=== PATIENT | male | born 1945 | race Caucasian/White ===

== ENCOUNTER 2017-01-24 08:37 | Emergency (ER) | payer MEDICARE, OTHER ==
--- NOTE | 2017-01-24 08:41 | ED Physician Documentation ---
PD HPI ABD PAIN - Stated complaint Stated Complaint: ABD/BACK PX - History obtained from History obtained from: Patient - History of Present Illness Timing - onset: Last night Timing - details: Gradual onset (was having flank pain with movement and some tender to touch during yoga retreat last week, thought it muscular and was treating with Aleve twice daily and massage. Presumed muscle strain. Had left flank to left abd pain start overnight, more severe, unrelated to movement.) Quality: Aching, Sharp, Pain Location: LUQ, LLQ Radiation: Left flank Improved by: No: Eating, Laying still, Position Worsened by: Moving. No: Eating, Position, Palpation Associated symptoms: Nausea. No: Fever, Vomiting, Diarrhea, Constipation, Dysuria, Hematuria Similar symptoms before: Has not had sx before Recently seen: Not recently seen Review of Systems Constitutional: denies: Fever, Chills, Myalgias Nose: denies: Rhinorrhea / runny nose, Congestion Throat: denies: Sore throat Cardiac: denies: Chest pain / pressure Respiratory: denies: Dyspnea, Cough GI: reports: Abdominal Pain (left sided), Nausea. denies: Vomiting, Constipation, Diarrhea : denies: Dysuria, Frequency Skin: denies: Rash, Lesions Neurologic: denies: Generalized weakness, Focal weakness, Numbness, Near syncope PD PAST MEDICAL HISTORY - Past Medical History Cardiovascular: None Respiratory: None Neuro: None Endocrine/Autoimmune: None GI: None - Present Medications Home Medications: Ambulatory Orders Medication Instructions Recorded Confirmed Dexamethasone [Decadron] 4 mg PO DAILY #5 tablet 01/24/17 Levothyroxine [Synthroid] 100 mcg PO DAILY 01/24/17 01/24/17 Lisinopril 01/24/17 Lisinopril/Hydrochlorothiazide 1 tab PO DAILY 01/24/17 01/24/17 [Lisinopril-Hctz 10-12.5 mg Tab] Ondansetron HCl [Zofran] 4 mg PO Q6H PRN #20 tablet 01/24/17 Oxycodone HCl/Acetaminophen 1 each PO Q6H PRN #20 tablet 01/24/17 [Percocet 5-325 mg Tablet] Tamsulosin [Flomax] 0.4 mg PO DAILY #5 capsule 01/24/17 - Allergies Allergies/Adverse Reactions: Allergies Allergy/AdvReac Type Severity Reaction Status Date / Time erythromycin base Allergy Unknown Verified 01/24/17 08:44 Sulfa (Sulfonamide Allergy Unknown Verified 01/24/17 08:44 Antibiotics) - Family History Family history: reports: Non contributory PD ED PE NORMAL - Vitals Vital signs reviewed: Yes - General General: Alert and oriented X 3, No acute distress, Well developed/nourished - Neck Neck: Supple, no meningeal sign, No adenopathy - Cardiac Cardiac: RRR, No murmur - Respiratory Respiratory: Clear bilaterally - Abdomen Abdomen: Normal bowel sounds, Soft, Non distended, No organomegaly, Other (some tenderness left sided without guarding nor percussion tenderness. No masses. ) - Male Male : Deferred - Rectal Rectal: Deferred - Back Back: Other (some left CVA tenderness to percussion. Some muscular tenderness left parathoracic muscles. ) - Derm Derm: Normal color, Warm and dry, No rash - Extremities Extremities: No tenderness to palpate, Normal ROM s pain - Neuro Neuro: Alert and oriented X 3, No motor deficit, Normal speech Results - Vitals Vitals: Vital Signs - 24 hr 01/24/17 01/24/17 08:41 10:41 Temperature 36.6 C Heart Rate 111 H 69 Respiratory 16 18 Rate Blood Pressure 152/82 H 124/78 O2 Saturation 98 95 Oxygen O2 Source Room air - Labs Labs: Laboratory Tests 01/24/17 01/24/17 01/24/17 09:11 09:39 09:39 WBC 10.5 RBC 4.84 Hgb 14.9 Hct 44.0 MCV 90.9 MCH 30.8 MCHC 33.9 RDW 13.8 Plt Count 238 MPV 7.7 Neut # 7.7 H Lymph # 1.4 L [place] # 1.3 H Eos # 0.1 Baso # 0.0 Absolute Nucleated RBC 0.00 Nucleated RBCs 0.0 Sodium 135 Potassium 4.0 Chloride 103 Carbon Dioxide 25 Anion Gap 7.0 BUN 31 H Creatinine 2.0 H Estimated GFR (MDRD) 33 L Glucose 127 H Calcium 10.2 Total Bilirubin 0.9 AST 21 ALT 28 Alkaline Phosphatase 60 Total Protein 7.1 Albumin 3.6 Globulin 3.5 Albumin/Globulin Ratio 1.0 Lipase 26 Urine Color YELLOW Urine Clarity CLEAR Urine pH 5.5 Ur Specific [place] 1.010 Urine Protein NEGATIVE Urine Glucose (UA) NEGATIVE Urine Ketones NEGATIVE Urine Occult Blood TRACE-LYSE Urine Nitrite NEGATIVE Urine Bilirubin NEGATIVE Urine Urobilinogen 0.2 (NORMAL) Ur Leukocyte Esterase NEGATIVE Ur Microscopic Review NOT INDICATED Urine Culture Comments NOT INDICATED - Rads (name of study) KUB CT Radiology: Prelim report reviewed (proximal urteral stone 7 mm with 2nd stone proximal to it. Mild hydronephrosis. ), EMP read contemporaneously PD MEDICAL DECISION MAKING - ED course Complexity details: considered differential (Not in that much pain; declines IV. Given PO meds. ), d/w patient Departure - Departure Disposition: Home, Self Care Clinical Impression: Left lateral abdominal pain, Ureterolithiasis, Elevated serum creatinine Condition: Stable Record reviewed to determine appropriate education?: Yes Instructions: ED Stone Renal W Colic Follow-Up: Aly Seals MD [Primary Care Provider] - [facility] [Provider Group] Prescriptions: Dexamethasone [Decadron] 4 mg PO DAILY #5 tablet Tamsulosin [Flomax] 0.4 mg PO DAILY #5 capsule Oxycodone HCl/Acetaminophen [Percocet 5-325 mg Tablet] 1 each PO Q6H PRN #20 tablet PRN Reason: Pain Ondansetron HCl [Zofran] 4 mg PO Q6H PRN #20 tablet PRN Reason: Nausea / Vomiting Comments: Drink adequate fluids. Tylenol for mild pain, Percocet for worse pain. Take daily stool softener. Call urology tomorrow for an appointment in the next few days. Do not take any ibuprofen or naproxen as your kidney function is slightly elevated. That could be an effect of the NSAIDs he had been using or may relate to the stone. Instead use Decadron daily for inflammation. Tamsulosin daily for the next 5 days to reduce ureter spasms. Return if worse pain. Discharge Date/Time: 01/24/17 10:52
[2017-01-24] MEDS ORDERED: HYDROcod/ACETAM 5/325 MG TABLET PO STA (09:13)
[2017-01-24] MEDS ORDERED: ONDANSETRON ODT 4 MG TABLET TL STA (09:13)
[2017-01-24 09:18] LABS: BILIRUBIN,URINE NEGATIVE (NEGATIVE); PH,URINE 5.5 PH (5.0-7.5)
[2017-01-24] MEDS ORDERED: HYDROcod/ACETAM 5/325 MG TABLET ONE (09:19)
[2017-01-24] MEDS ORDERED: ONDANSETRON ODT 4 MG TABLET ONE (09:19)
[2017-01-24 09:20] LABS: UA CHARGE (STRIP ONLY) YES; UR CULTURE IF IND NOT INDICATED
[2017-01-24 09:44] LABS: BASOPHILS % (AUTO) 0.3 %; EOSINOPHILS # (AUTO) 0.1 10^3/uL (0.0-0.7); HGB - HEMOGLOBIN 14.9 g/dL (14.0-18.0); LYMPHOCYTES # (AUTO) 1.4 10^3/uL (1.5-3.5); MEAN CORPUSCULAR HEMOGLOBIN 30.8 pg (27.0-31.0); MEAN CORPUSCULAR HGB CONC 33.9 g/dL (32.0-36.0); MEAN CORPUSCULAR VOLUME 90.9 fL (80.0-94.0); MEAN PLATELET VOLUME 7.7 fL (7.4-11.4); MONOCYTES # (AUTO) 1.3 10^3/uL (0.0-1.0); MONOCYTES % (AUTO) 12.5 %; NEUTROPHILS # (AUTO) 7.7 10^3/uL (1.5-6.6); NEUTROPHILS % (AUTO) 73.2 %; RED BLOOD COUNT 4.84 10^6/uL (4.70-6.10); RED CELL DISTRIBUTION WIDTH 13.8 % (12.0-15.0); UNCORRECTED WHITE BLOOD COUNT 10.5 x10^3/uL; WHITE BLOOD COUNT 10.5 x10^3/uL (4.8-10.8)
--- NOTE | 2017-01-24 09:52 | CT Preliminary Report ---
Exam: CT KUB IMPRESSION: 1. Obstructing proximal left ureteral 7 x 5 mm calculus with 2 other smaller although more proximal c alculi within the slightly more proximal left ureter, the largest of which measures 3 x 3 mm. 2. Mild to moderate left hydronephrosis and left perinephric edema. 3. Nonobstructing left renal calculi. 4. Normal appendix. [facility] SITE ID: [id number]
[2017-01-24 09:55] LABS: BILIRUBIN,TOTAL 0.9 mg/dL (0.2-1.0); CALCIUM 10.2 mg/dL (8.5-10.3); TOTAL PROTEIN 7.1 g/dL (6.7-8.2)
[2017-01-24 10:41] VITALS: BP 124/78
--- NOTE | 2017-01-24 11:15 | CT Report ---
EXAM: CT ABDOMEN AND PELVIS (CT KUB) EXAM DATE: 01/24/2017 09:30 AM. CLINICAL HISTORY: Left flank and abdominal pain for a few days. COMPARISONS: None. TECHNIQUE: Routine axial helical CT imaging was performed through the abdomen and pelvis without IV c ontrast. Reconstructions: Coronal and sagittal. In accordance with CT protocol optimization, one or more of the following dose reduction techniques w ere utilized for this exam: automated exposure control, adjustment of mA and/or KV based on patient s ize, or use of iterative reconstructive technique. FINDINGS: Lung Bases: Basilar scar/atelectasis. Included portions of the heart are unremarkable. Right Kidney/Ureter: No nephrolithiasis. No hydronephrosis. No ureteral dilatation or ureteral calcul i. Mild right perinephric stranding. Left Kidney/Ureter: Left perinephric edema and left fsqc-[id number] hydronephrosis extending to a pr oximal left ureter where there is an obstructing calculus just distal to the left upj, which measures 7 x 5 mm. Just proximal are two other calculi, the larger of which measures 3 x 3 mm. There are at l east two nonobstructing left renal calculi in the mid and lower pole, the largest measuring 2.5 mm. T he mid distal left ureter is not dilated. Other Solid Organs: Included portions of the liver spleen, adrenals and pancreas are unremarkable. Gallbladder/Bile Ducts: Unremarkable. Peritoneal Cavity: Stomach is mildly distended and unremarkable. No bowel obstruction. Appendix is no rmal. Icldn-sx-btqpbnib volume of stool is seen in the colon. No diverticulitis. No enlarged retrope ritoneal or mesenteric lymph nodes. Pelvic Organs: Urinary bladder is unremarkable. No bladder calculi. Prostate calcifications are seen. No pelvic adenopathy. No pelvic free fluid. Vasculature: Atherosclerotic calcifications are seen. No aneurysm. Other: Degenerative changes of the lower thoracic and lumbar spine. Lumbar facet arthropathy. Degener ative changes of both hip joints. IMPRESSION: 1. Obstructing proximal left ureteral 7 x 5 mm calculus with two other smaller although more proximal calculi within the slightly more proximal left ureter, the largest of which measures 3 x 3 mm. 2. Mild to moderate left hydronephrosis and left perinephric edema. 3. Nonobstructing left renal calculi. 4. Normal appendix. [facility] Referring Provider Line: [phone] SITE ID: [id number]
== END 2017-01-24 10:52 | disposition home or self-care (01) ==
LOC: ED 08:37
DX: N13.2 Hydronephrosis with renal and ureteral calculous obstruction (principal); R94.4 Abnormal results of kidney function studies
CPT/HCPCS: 36415; 74176; 80053; 81003; 83690; 85025; 99283; 99284; A9270; Q0162; 81001; 87086

== ENCOUNTER 2017-02-19 16:22 | Outpatient (CLI) | payer MEDICARE, OTHER ==
--- NOTE | 2017-02-19 22:14 | MRI Report ---
EXAM: RIGHT SHOULDER MRI WITHOUT CONTRAST EXAM DATE: 02/19/2017 04:42 PM. CLINICAL HISTORY: Right shoulder injury and sprain. Previous dislocation injury as a teenager. Previo us labral surgery in 1996. Right shoulder subluxing and partially dislocating. Right shoulder pain. R educed range of motion. COMPARISON: None. TECHNIQUE: Multiplanar, multisequence T1-weighted and fluid-sensitive sequences of the shoulder witho ut contrast. Other: None. FINDINGS: Acromioclavicular Region: The acromion is type I. There is a prominent, approximately 8 x 4 x 4 mm e nthesophyte arising from the inferolateral margin of the acromion. There is abfx-dg-epfqyuxn acromioc lavicular joint osteoarthritis. The coracoacromial ligament is not well visualized. The coracoclavicu lar ligament is intact. No subacromial/subdeltoid bursal fluid. Glenohumeral Region: There is slight posterior superior subluxation of the humeral head relative to t he glenoid. No effusion or loose bodies. Grade 3-4 chondromalacia at the posterior aspect of the ricky oid and diffuse grade 3-4 chondromalacia at the humeral head. The glenohumeral ligaments and joint ca psule are unremarkable. Bone Marrow: Small subcortical cysts and osteophytes at the posterior aspect of the glenoid. Small gonzalez bcortical cysts at the posterior superior aspect of the humeral head. No acute fracture. No Hill-Sach s or bony Bankart lesions. Labrum: The labrum is unremarkable on this nonarthrographic study. Musculature/Rotator Cuff: Mild supraspinatus tendinosis. The infraspinatus, teres minor, and subscapu faby tendons are unremarkable. No discrete rotator cuff tear. No edema or fatty atrophy. Biceps Tendon: The long head of the biceps tendon and biceps josé miguel are intact. Other: The subcutaneous tissues are unremarkable. IMPRESSION: 1. Prominent enthesophyte arising from the inferolateral margin of the acromion. 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 2. The coracoacromial ligament is not well visualized, and may be torn or removed. 3. Slight posterior superior subluxation of the humeral head relative to the glenoid. Grade 3-4 chond romalacia at the posterior aspect of the glenoid and throughout the humeral head. 4. Mild supraspinatus tendinosis. No rotator cuff tear. [facility] MUSCULOSKELETAL RADIOLOGY SECTION Referring Provider Line: [phone] SITE ID: [id number]
== END 2017-02-19 16:23 | disposition home or self-care (01) ==
LOC: DI 16:22
PROVIDERS: ATTEND Orthopaedic Surgery
DX: S43.021A Posterior subluxation of right humerus, initial encounter (principal); M19.011 Primary osteoarthritis, right shoulder; M75.81 Other shoulder lesions, right shoulder; M94.211 Chondromalacia, right shoulder

== ENCOUNTER 2017-03-26 13:54 | Outpatient (CLI) | payer MEDICARE, OTHER | END 2017-03-26 13:55 | disposition home or self-care (01) | LOC: DI 13:54 | PROVIDERS: ATTEND Internal Medicine Cardiovascular Disease | DX: I49.3 Ventricular premature depolarization (principal); I10 Essential (primary) hypertension; I34.0 Nonrheumatic mitral (valve) insufficiency | CPT/HCPCS: 36415; 83735; 93306 ==

== ENCOUNTER 2017-04-23 07:29 | Outpatient (CLI) | payer MEDICARE, OTHER ==
[2017-04-23 12:13] LABS: BUN - BLOOD UREA NITROGEN 17 mg/dL (6-20); CALCIUM 9.2 mg/dL (8.5-10.3); CARBON DIOXIDE - CO2 26 mmol/L (21-32); CHLORIDE 103 mmol/L (101-111); CHOL/HDL RATIO 3.8 (<5.0); CHOLESTEROL 204 mg/dL; CREATININE 1.1 mg/dL (0.6-1.2); GFR - MDRD 66 (>89); GLUCOSE 95 mg/dL (70-100); HDL CHOLESTEROL 54 mg/dL; LDL/HDL RATIO 2.6 (<3.6); POTASSIUM 4.2 mmol/L (3.5-5.0); SODIUM 137 mmol/L (135-145); TRIGLYCERIDES 43 mg/dL; VLDL CHOLESTEROL 9 mg/dL
== END 2017-04-23 07:30 | disposition home or self-care (01) ==
LOC: LAB.F 07:29
PROVIDERS: ATTEND Internal Medicine
DX: Z00.00 Encounter for general adult medical examination without abnormal findings (principal); I10 Essential (primary) hypertension; N17.9 Acute kidney failure, unspecified; J30.9 Allergic rhinitis, unspecified; L20.9 Atopic dermatitis, unspecified; M54.2 Cervicalgia; L30.9 Dermatitis, unspecified; G47.00 Insomnia, unspecified; H35.30 Unspecified macular degeneration; N20.0 Calculus of kidney; E66.3 Overweight; M25.561 Pain in right knee; M25.511 Pain in right shoulder; E03.9 Hypothyroidism, unspecified
CPT/HCPCS: 36415; 80048; 80061; 84443

== ENCOUNTER 2017-06-10 09:38 | Outpatient (CLI) | payer MEDICARE, OTHER ==
--- NOTE | 2017-06-10 18:51 | CARDIAC PROCEDURE NOTE ---
DATE OF SERVICE: 06/10/ PROCEDURE: MPS Jerrod treadmill ORDERING [employer] SALES MANAGER: Dr. Lane PCP: Dr. Seals. SYMPTOMS: PVCs. RISK FACTORS: Age, hypertension and hyperlipidemia. PRIOR PROCEDURES: Previous ETT MEDICATIONS: Metoprolol held x24 hours. CLINICAL HISTORY: This is a 71-year-old male without known coronary artery disease. PROCEDURE AND FINDINGS: VITAL SIGNS: Blood pressure 122/72, heart rate 91, height 71 inches, weight 188 pounds. The patient's ID and date verified. Consent signed, pharmaceutical check done. The patient performed treadmill exercise using a Jerrod protocol, completing 7 minutes, 40 seconds, and completing an estimated workload of 10.1 metabolic equivalents. Cardiolite was injected at target heart rate and the patient exercised at least 60 seconds longer. Maximal blood pressure was 182/70 with a heart rate of 157 or 104% MPHR for age. The blood pressure response to exercise was within normal limits. The patient stopped due to tiring. The resting ECG demonstrated normal sinus rhythm with occasional unifocal PVCs. Maximal ST segment depression was less than 0.5 mm and upsloping. There were occasional random PVCs, PVC bigeminy and trigeminy, and one couplet. FINAL IMPRESSION: 1. Negative stress electrocardiogram for ischemia by electrocardiographic criteria. 2. Negative stress test clinically for angina. 3. PVC ectopy. 4. Await findings of myocardial perfusion scan. JOB #: [id number] EXT JOB #:[id number] MTDD
[2017-06-10 19:19] VITALS: BP 122/72
--- NOTE | 2017-06-11 09:16 | Nuclear Medicine Report ---
EXAM: SINGLE-ISOTOPE EXERCISE STRESS TEST. SINGLE-ISOTOPE AND ONE-DAY REST/STRESS MYOCARDIAL PERFUSION SCAN S WITH TOMOGRAPHIC IMAGING, QUANTITATIVE ANALYSIS, WALL MOTION ANALYSIS AND CALCULATION OF EJECTION F RACTION. EXAM DATE: 06/10/2017 05:03 PM. CLINICAL HISTORY: PVCS. COMPARISON: None. TECHNIQUE: A rest myocardial perfusion scan was done with tomography after the intravenous administration of 10. 1 mCi Tc-99m sestamibi. After an appropriate delay, a treadmill exercise stress was performed according to department protoco l. The patient exercised for 7 minutes and 40 seconds. The maximum heart rate was 157 bpm, which was 104% of the maximum predicted heart rate of 151 bpm. At approximately peak heart rate, 40.6 mCi of Tc -99m sestamibi was injected for stress myocardial perfusion scan. Motion correction was applied when appropriate. Gated tomographic images were obtained for wall motion analysis and computation of left ventricular e jection fraction. FINDINGS: Perfusion images: Left ventricular chamber size is normal at rest and unchanged at stress. There is mild fixed inferior wall perfusion deficit likely diaphragmatic attenuation artifact. No convincing fixed perfusion deficits. No convincing reversible perfusion deficits. Gated images: No focal wall motion abnormality. The left ventricular ejection fraction is estimated at 66% (normal > 50%). IMPRESSION: 1. No convincing reversible perfusion deficits to indicate stress-induced ischemia. 2. No convincing fixed perfusion deficits. 3. Left ventricular ejection fraction of 66% (normal > 50%). 4. No focal wall motion abnormalities. [facility] Referring Provider Line: [phone] SITE ID: [id number]
== END 2017-06-10 09:39 | disposition home or self-care (01) ==
LOC: DI 09:38
PROVIDERS: ATTEND Internal Medicine Cardiovascular Disease
DX: I49.3 Ventricular premature depolarization (principal); R53.83 Other fatigue; I10 Essential (primary) hypertension; I25.10 Atherosclerotic heart disease of native coronary artery without angina pectoris
CPT/HCPCS: 78452; 93017; A9500

== ENCOUNTER 2018-03-31 07:48 | Outpatient (CLI) | payer MEDICARE, OTHER ==
[2018-03-31 10:22] LABS: BUN - BLOOD UREA NITROGEN 25 mg/dL (6-20); CALCIUM 9.5 mg/dL (8.5-10.3); CARBON DIOXIDE - CO2 28 mmol/L (21-32); CHLORIDE 104 mmol/L (101-111); GFR - MDRD 74 (>89); GLUCOSE 87 mg/dL (70-100); SODIUM 139 mmol/L (135-145)
[2018-04-01 13:57] LABS: HEPATITIS C ANTIBODY NON-REACTIVE (NON-REACTIVE)
== END 2018-03-31 07:49 | disposition home or self-care (01) ==
LOC: LAB.F 07:48
PROVIDERS: ATTEND Internal Medicine
DX: I10 Essential (primary) hypertension (principal); E78.5 Hyperlipidemia, unspecified; E03.9 Hypothyroidism, unspecified; L30.9 Dermatitis, unspecified; L71.9 Rosacea, unspecified; M25.511 Pain in right shoulder; Z11.59 Encounter for screening for other viral diseases
CPT/HCPCS: 36415; 80048; 84443; 86803

== ENCOUNTER 2018-07-02 17:09 | Emergency (ER) | payer MEDICARE, OTHER ==
[2018-07-02 17:22] VITALS: BP 147/86
[2018-07-02] MEDS ORDERED: AMOX/CLAV 875 MG/125 MG TABLET PO STA (17:33)
[2018-07-02] MEDS ORDERED: BENZONATATE 100 MG CAPSULE PO STA (17:33)
[2018-07-02] MEDS ORDERED: guaiFENesin/CODEINE 5 ML UDC PO STA (17:33)
--- NOTE | 2018-07-02 17:35 | ED Physician Documentation ---
History of Present Illness - Stated complaint Stated Complaint: CONGESTED/COUGH - Chief complaint Chief Complaint: Heent - History obtained from History obtained from: Patient - History of Present Illness Timing: Other (Sick for 3 weeks with cough and sinus congestion with green drainage and low-grade fevers.) Review of Systems Ten Systems: 10 systems reviewed and negative Constitutional: reports: Fever, Fatigue. denies: Chills Nose: reports: Rhinorrhea / runny nose, Congestion, Sinus pressure / pain Throat: denies: Sore throat Respiratory: reports: Cough. denies: Dyspnea PD PAST MEDICAL HISTORY - Past Medical History Cardiovascular: None, Hypertension, High cholesterol Respiratory: None Endocrine/Autoimmune: None GI: None - Past Surgical History Past Surgical History: Yes - Present Medications Home Medications: Ambulatory Orders Medication Instructions Recorded Confirmed Levothyroxine [Synthroid] 100 mcg PO DAILY 01/24/17 01/24/17 Lisinopril 1 tab PO DAILY 01/24/17 Amox/Clav 875/125 [Augmentin] 1 each PO Q12H #20 tablet 07/02/18 Benzonatate [Tessalon Perle] 100 - 200 mg PO TID PRN #30 capsule 07/02/18 guaiFENesin/CODEINE [Robitussin AC] 5 - 10 ml PO Q6H PRN #120 ml 07/02/18 - Allergies Allergies/Adverse Reactions: Allergies Allergy/AdvReac Type Severity Reaction Status Date / Time erythromycin base Allergy Unknown Verified 07/02/18 17:22 Sulfa (Sulfonamide Allergy Unknown Verified 07/02/18 17:22 Antibiotics) - Social History Does the pt smoke?: No Smoking Status: Never smoker Does the pt drink ETOH?: No Does the pt have substance abuse?: No PD ED PE NORMAL - Vitals Vital signs reviewed: Yes - General General: Alert and oriented X 3, No acute distress - HEENT HEENT: Other (Retracted TMs bilaterally with mild right maxillary sinus tenderness. Oropharynx normal.) - Neck Neck: Supple, no meningeal sign, No bony TTP - Cardiac Cardiac: RRR, No murmur - Respiratory Respiratory: No respiratory distress, Clear bilaterally - Abdomen Abdomen: Non tender - Neuro Neuro: Alert and oriented X 3, Normal speech Results - Vitals Vitals: Vital Signs - 24 hr 07/02/18 17:19 Temperature 36.6 C Heart Rate 88 Respiratory 16 Rate Blood Pressure 147/86 H O2 Saturation 98 Oxygen O2 Source Room air PD MEDICAL DECISION MAKING - ED course ED course: Given the time course he does fit IDSA criteria for antibiotic treatment for sinusitis. Departure - Departure Disposition: 01 Home, Self Care Clinical Impression: Sinusitis Qualifiers: Sinusitis location: maxillary Chronicity: acute Recurrence: not specified as recurrent Qualified Code(s): J01.00 - Acute maxillary sinusitis, unspecified Condition: Good Record reviewed to determine appropriate education?: Yes Instructions: ED Sinusitis Abx Tx Prescriptions: Amox/Clav 875/125 [Augmentin] 1 each PO Q12H #20 tablet Benzonatate [Tessalon Perle] 100 - 200 mg PO TID PRN #30 capsule PRN Reason: Cough guaiFENesin/CODEINE [Robitussin AC] 5 - 10 ml PO Q6H PRN #120 ml PRN Reason: Cough Comments: Call your doctor to arrange a follow-up appointment, make the next available appointment. In the interim, return anytime if worse or if new symptoms develop. Your blood pressure was elevated today on check into the emergency department. This does not mean that you have hypertension, it is a common phenomenon to come to the emergency department and have elevated blood pressure. I recommend that you see your primary care physician within the week to have it rechecked when you are feeling better.
== END 2018-07-02 17:43 | disposition home or self-care (01) ==
LOC: ED 17:09
DX: J01.00 Acute maxillary sinusitis, unspecified (principal); I10 Essential (primary) hypertension; E78.00 Pure hypercholesterolemia, unspecified
CPT/HCPCS: 99283; A9270

== ENCOUNTER 2019-05-01 08:10 | Outpatient (CLI) | payer MEDICARE, OTHER ==
[2019-05-01 10:28] LABS: BUN - BLOOD UREA NITROGEN 16 mg/dL (6-20); CALCIUM 9.6 mg/dL (8.5-10.3); CARBON DIOXIDE - CO2 27 mmol/L (21-32); CHLORIDE 102 mmol/L (101-111); CHOL/HDL RATIO 3.4 (<5.0); CHOLESTEROL 197 mg/dL; CREATININE 1.1 mg/dL (0.6-1.2); GFR - MDRD 66 (>89); GLUCOSE 99 mg/dL (70-100); HDL CHOLESTEROL 58 mg/dL; LDL CHOLESTEROL,CALCULATED 128 mg/dL; LDL/HDL RATIO 2.2 (<3.6); SODIUM 137 mmol/L (135-145); VLDL CHOLESTEROL 11 mg/dL
== END 2019-05-01 08:11 | disposition home or self-care (01) ==
LOC: LAB.S 08:10
PROVIDERS: ATTEND Internal Medicine
DX: Z00.00 Encounter for general adult medical examination without abnormal findings (principal); J30.9 Allergic rhinitis, unspecified; L30.9 Dermatitis, unspecified; K21.9 Gastro-esophageal reflux disease without esophagitis; E78.5 Hyperlipidemia, unspecified; G47.00 Insomnia, unspecified; L71.9 Rosacea, unspecified; M54.6 Pain in thoracic spine; E03.9 Hypothyroidism, unspecified; I10 Essential (primary) hypertension
CPT/HCPCS: 36415; 80048; 80061; 83721; 84443

== ENCOUNTER 2020-03-28 08:23 | Outpatient (CLI) | payer MEDICARE, OTHER ==
[2020-03-28 16:03] LABS: BUN - BLOOD UREA NITROGEN 20 mg/dL (6-20); CALCIUM 9.5 mg/dL (8.5-10.3); CARBON DIOXIDE - CO2 26 mmol/L (21-32); CHLORIDE 102 mmol/L (101-111); CHOL/HDL RATIO 3.4 (<5.0); CHOLESTEROL 191 mg/dL; CREATININE 1.1 mg/dL (0.6-1.2); GLUCOSE 103 mg/dL (70-100); HDL CHOLESTEROL 56 mg/dL; LDL CHOLESTEROL,CALCULATED 118 mg/dL; LDL/HDL RATIO 2.1 (<3.6); SODIUM 136 mmol/L (135-145); VLDL CHOLESTEROL 17 mg/dL
== END 2020-03-28 08:24 | disposition home or self-care (01) ==
LOC: LAB.S 08:23
PROVIDERS: ATTEND Internal Medicine
DX: Z00.00 Encounter for general adult medical examination without abnormal findings (principal); I10 Essential (primary) hypertension; E78.5 Hyperlipidemia, unspecified; E03.9 Hypothyroidism, unspecified; J30.9 Allergic rhinitis, unspecified; L30.9 Dermatitis, unspecified; K21.9 Gastro-esophageal reflux disease without esophagitis; G47.00 Insomnia, unspecified; L71.9 Rosacea, unspecified; M54.6 Pain in thoracic spine
CPT/HCPCS: 36415; 80048; 80061; 83721; 84443

== ENCOUNTER 2020-04-08 14:45 | Outpatient (CLI) | payer MEDICARE, OTHER ==
[2020-04-08 20:07] LABS: BASOPHILS % (AUTO) 0.3 %; EOSINOPHILS # (AUTO) 0.1 10^3/uL (0.0-0.7); EOSINOPHILS % (AUTO) 0.9 %; HGB - HEMOGLOBIN 15.4 g/dL (14.0-18.0); LYMPHOCYTES # (AUTO) 1.9 10^3/uL (1.5-3.5); LYMPHOCYTES % (AUTO) 21.4 %; MEAN CORPUSCULAR HEMOGLOBIN 30.4 pg (27.0-31.0); MEAN CORPUSCULAR HGB CONC 31.8 g/dL (32.0-36.0); MEAN CORPUSCULAR VOLUME 95.7 fL (80.0-94.0); MEAN PLATELET VOLUME 10.4 fL (7.4-11.4); MONOCYTES # (AUTO) 0.8 10^3/uL (0.0-1.0); MONOCYTES % (AUTO) 8.4 %; NEUTROPHILS # (AUTO) 6.1 10^3/uL (1.5-6.6); NEUTROPHILS % (AUTO) 68.4 %; PLT - PLATELET COUNT 285 10^3/uL (130-450); RED BLOOD COUNT 5.07 10^6/uL (4.70-6.10); RED CELL DISTRIBUTION WIDTH 13.7 % (12.0-15.0)
[2020-04-08 20:15] LABS: ALBUMIN 4.1 g/dL (3.2-5.5); BILIRUBIN,DIRECT 0.1 mg/dL (0.1-0.5); TOTAL PROTEIN 6.8 g/dL (6.7-8.2)
== END 2020-04-08 14:46 | disposition home or self-care (01) ==
LOC: LAB.S 14:45
PROVIDERS: ATTEND Internal Medicine
DX: I10 Essential (primary) hypertension (principal); E03.9 Hypothyroidism, unspecified; G47.00 Insomnia, unspecified; R53.83 Other fatigue
CPT/HCPCS: 36415; 80076; 85025

== ENCOUNTER 2020-04-09 09:33 | Outpatient (CLI) | payer MEDICARE, OTHER | END 2020-04-09 09:34 | disposition home or self-care (01) | LOC: COV 09:33 | PROVIDERS: ATTEND Family Medicine | DX: R53.83 Other fatigue (principal); Z20.828 Contact with and (suspected) exposure to other viral communicable diseases ==

== ENCOUNTER 2020-04-11 15:42 | Outpatient (CLI) | payer MEDICARE, OTHER ==
[2020-04-11 20:52] LABS: BASOPHILS # (AUTO) 0.1 10^3/uL (0.0-0.1); BASOPHILS % (AUTO) 0.5 %; EOSINOPHILS # (AUTO) 0.1 10^3/uL (0.0-0.7); EOSINOPHILS % (AUTO) 0.9 %; HGB - HEMOGLOBIN 15.5 g/dL (14.0-18.0); LYMPHOCYTES # (AUTO) 2.1 10^3/uL (1.5-3.5); LYMPHOCYTES % (AUTO) 22.5 %; MEAN CORPUSCULAR HGB CONC 32.4 g/dL (32.0-36.0); MEAN CORPUSCULAR VOLUME 95.6 fL (80.0-94.0); MEAN PLATELET VOLUME 10.3 fL (7.4-11.4); MONOCYTES # (AUTO) 0.9 10^3/uL (0.0-1.0); MONOCYTES % (AUTO) 10.1 %; NEUTROPHILS % (AUTO) 65.5 %; PLT - PLATELET COUNT 302 10^3/uL (130-450); RED CELL DISTRIBUTION WIDTH 13.6 % (12.0-15.0); WHITE BLOOD COUNT 9.2 x10^3/uL (4.8-10.8)
[2020-04-11 21:21] LABS: THYROID STIMULATING HORMONE 0.53 uIU/mL (0.34-5.60)
[2020-04-11 21:22] LABS: FREE T3 3.04 pg/mL (2.5-3.9)
[2020-04-11 21:23] LABS: FREE T4 (FREE THYROXINE) 1.32 ng/dL (0.58-1.64)
== END 2020-04-11 15:43 | disposition home or self-care (01) ==
LOC: LAB.S 15:42
PROVIDERS: ATTEND Internal Medicine
DX: D68.4 Acquired coagulation factor deficiency (principal); R53.83 Other fatigue; E03.9 Hypothyroidism, unspecified; M62.81 Muscle weakness (generalized)
CPT/HCPCS: 36415; 81241; 82550; 84439; 84443; 84481; 85025; 85379

== ENCOUNTER 2020-04-20 09:36 | Emergency (ER) | payer MEDICARE, OTHER ==
--- NOTE | 2020-04-20 10:12 | ED Physician Documentation ---
PD HPI DYSPNEA - Stated complaint Stated Complaint: PX IN L ARM - Chief complaint Chief Complaint: Cardiac - History obtained from History obtained from: Patient - History of Present Illness Timing - onset: How many weeks ago (3) Timing - onset during: Light activity, Exertion Timing - duration: Weeks (3) Timing - details: Gradual onset, Still present (Onset of gradually worsening fatigue and dyspnea on exertion which has increased over the last 3 weeks. Now light activity is fatiguing. No fevers cough. No chest pain per se. Last 2 days he has had some aching in the left arm, but was after a tight BP cuff couple days ago. No chest pain.) Inciting event(s): Exercise. No: URI Improved by: Rest. No: Sitting up Worsened by: Exertion. No: Laying flat Associated symptoms: No: Fever, Cough, Wheezing, Chest pain / discomfort, Palpitations, Bilateral edema Similar symptoms before: Has not had sx before Recently seen: Clinic (Seen telemedicine by PMD with normal lab tests.) Review of Systems Constitutional: reports: Fatigue. denies: Fever, Chills, Myalgias Nose: denies: Rhinorrhea / runny nose, Congestion Throat: denies: Sore throat Cardiac: denies: Chest pain / pressure, Palpitations, Pedal edema, Calf pain Respiratory: reports: Dyspnea. denies: Cough, Wheezing GI: denies: Nausea, Vomiting, Diarrhea Neurologic: reports: Generalized weakness. denies: Focal weakness, Numbness, Near syncope, Altered mental status, Headache Psychiatric: denies: Depressed, Insomnia Endocrine: denies: Weight loss Immunocompromised: denies: Immunocompromised PD PAST MEDICAL HISTORY - Past Medical History Cardiovascular: None, Hypertension, High cholesterol Respiratory: None Endocrine/Autoimmune: None GI: None - Past Surgical History Past Surgical History: Yes - Present Medications Home Medications: Ambulatory Orders Medication Instructions Recorded Confirmed Levothyroxine [Synthroid] 100 mcg PO DAILY 01/24/17 01/24/17 lisinopriL [Lisinopril] 1 tab PO DAILY 01/24/17 Amox/Clav 875/125 [Augmentin] 1 each PO Q12H #20 tablet 07/02/18 Benzonatate [Tessalon Perle] 100 - 200 mg PO TID PRN #30 capsule 07/02/18 guaiFENesin/CODEINE [Robitussin AC] 5 - 10 ml PO Q6H PRN #120 ml 07/02/18 - Allergies Allergies/Adverse Reactions: Allergies Allergy/AdvReac Type Severity Reaction Status Date / Time erythromycin base Allergy Unknown Verified 04/20/20 09:49 Sulfa (Sulfonamide Allergy Unknown Verified 04/20/20 09:49 Antibiotics) - Social History Does the pt smoke?: No Smoking Status: Never smoker Does the pt drink ETOH?: No Does the pt have substance abuse?: No - Immunizations Immunizations are current?: Yes PD ED PE NORMAL - Vitals Vital signs reviewed: Yes - General General: Alert and oriented X 3, No acute distress, Well developed/nourished - Neck Neck: Supple, no meningeal sign, No adenopathy - Cardiac Cardiac: RRR, No murmur - Respiratory Respiratory: Clear bilaterally - Abdomen Abdomen: Soft, Non tender - Back Back: No CVA TTP - Derm Derm: Normal color, Warm and dry - Extremities Extremities: No deformity, Normal ROM s pain, No edema, No calf tenderness / cord - Neuro Neuro: Alert and oriented X 3, No motor deficit, Normal speech Eye Opening: Spontaneous Motor: Obeys Commands Verbal: Oriented GCS Score: 15 Results - Vitals Vitals: Vital Signs - 24 hr 04/20/20 04/20/20 04/20/20 09:43 10:08 11:35 Temperature 36.6 C 36.9 C Heart Rate 90 83 83 Respiratory 18 21 18 Rate Blood Pressure 106/68 134/85 H 111/76 O2 Saturation 100 99 99 Oxygen O2 Source Room air - EKG (time done) 10:04 Rate: Rate (enter#) (84) Rhythm: NSR [place]: Normal Intervals: Normal UT QRS: Normal Ischemia: Normal ST segments. No: ST elevation c/w ischemia, ST depression - Labs Labs: Laboratory Tests 04/20/20 04/20/20 04/20/20 10:12 10:12 10:12 WBC 11.6 H RBC 4.70 Hgb 14.8 Hct 43.9 MCV 93.4 MCH 31.5 H MCHC 33.7 RDW 13.3 Plt Count 278 MPV 8.9 Neut # (Auto) 8.2 H Lymph # (Auto) 2.1 [place] # (Auto) 1.1 H Eos # (Auto) 0.1 Baso # (Auto) 0.0 Absolute Nucleated RBC 0.00 Nucleated RBC % 0.0 Sodium 137 Potassium 4.3 Chloride 104 Carbon Dioxide 24 Anion Gap 9.0 BUN 17 Creatinine 1.0 Estimated GFR (MDRD) 73 L Glucose 103 H Calcium 9.5 Magnesium Total Bilirubin 1.0 AST 23 ALT 26 Alkaline Phosphatase 55 Total Creatine Kinase Troponin I High Sens 4.1 B-Natriuretic Peptide Total Protein 6.8 Albumin 3.9 Globulin 2.9 Albumin/Globulin Ratio 1.3 Lipase 50 04/20/20 04/20/20 10:12 10:12 WBC RBC Hgb Hct MCV MCH MCHC RDW Plt Count MPV Neut # (Auto) Lymph # (Auto) [place] # (Auto) Eos # (Auto) Baso # (Auto) Absolute Nucleated RBC Nucleated RBC % Sodium Potassium Chloride Carbon Dioxide Anion Gap BUN Creatinine Estimated GFR (MDRD) Glucose Calcium Magnesium 2.3 Total Bilirubin AST ALT Alkaline Phosphatase Total Creatine Kinase 98 Troponin I High Sens B-Natriuretic Peptide 32 Total Protein Albumin Globulin Albumin/Globulin Ratio Lipase - Rads (name of study) chest xray Radiology: Prelim report reviewed (normal), See rad report PD MEDICAL DECISION MAKING - ED course Complexity details: reviewed results (bedside limited ECHO showing symmetric contraction of LV, no effusion, normal heart size. ), considered differential, d/w patient Departure - Departure Disposition: 01 Home, Self Care Clinical Impression: Exertional dyspnea Fatigue Qualifiers: Fatigue type: unspecified Qualified Code(s): R53.83 - Other fatigue Condition: Stable Record reviewed to determine appropriate education?: Yes Follow-Up: Aly Seals MD [Primary Care Provider] - Comments: No signs of heart attack or heart failure based on the tests here. I would suggest following with Dr. Seals and perhaps having him refer or schedule heart stress test to ensure no signs of angina as a cause of your exertional symptoms. Otherwise no obvious cause at this time. Discharge Date/Time: 04/20/20 11:40
[2020-04-20 10:19] LABS: BASOPHILS % (AUTO) 0.3 %; EOSINOPHILS # (AUTO) 0.1 10^3/uL (0.0-0.7); EOSINOPHILS % (AUTO) 0.7 %; HGB - HEMOGLOBIN 14.8 g/dL (14.0-18.0); LYMPHOCYTES # (AUTO) 2.1 10^3/uL (1.5-3.5); LYMPHOCYTES % (AUTO) 17.8 %; MEAN CORPUSCULAR HEMOGLOBIN 31.5 pg (27.0-31.0); MEAN CORPUSCULAR HGB CONC 33.7 g/dL (32.0-36.0); MEAN CORPUSCULAR VOLUME 93.4 fL (80.0-94.0); MEAN PLATELET VOLUME 8.9 fL (7.4-11.4); MONOCYTES # (AUTO) 1.1 10^3/uL (0.0-1.0); MONOCYTES % (AUTO) 9.8 %; NEUTROPHILS # (AUTO) 8.2 10^3/uL (1.5-6.6); NEUTROPHILS % (AUTO) 70.8 %; PLT - PLATELET COUNT 278 10^3/uL (130-450); RED CELL DISTRIBUTION WIDTH 13.3 % (12.0-15.0); WHITE BLOOD COUNT 11.6 x10^3/uL (4.8-10.8)
--- NOTE | 2020-04-20 10:23 | XRAY Report ---
PROCEDURE: Chest 1 View X-Ray INDICATIONS: Chest pain TECHNIQUE: One view of the chest was acquired. COMPARISON: None available FINDINGS: Surgical changes and devices: Right lower neck postoperative clips are seen. Lungs and pleura: No pleural effusions or pneumothorax. Lungs are clear. Mediastinum: Mediastinal contours appear normal. Heart size is normal. Bones and chest wall: No suspicious bony lesions. Age-appropriate degenerative changes are seen. Overlying soft tissues appear unremarkable. IMPRESSION: Clear lungs. Right lower neck postoperative clips noted. Reviewed by: Chuck Reynoso MD on 04/20/2020 9:22 AM JOON Approved by: Chuck Reynoso MD on 04/20/2020 9:22 AM JOON Station ID: [id number]
[2020-04-20 10:34] LABS: ALBUMIN 3.9 g/dL (3.2-5.5); ALBUMIN/GLOBULIN RATIO 1.3 (1.0-2.2); CALCIUM 9.5 mg/dL (8.5-10.3); TOTAL PROTEIN 6.8 g/dL (6.7-8.2)
[2020-04-20 11:05] LABS: MAGNESIUM 2.3 mg/dL (1.7-2.8)
[2020-04-20 11:35] VITALS: BP 111/76
== END 2020-04-20 11:40 | disposition home or self-care (01) ==
LOC: ED 09:36
DX: R06.09 Other forms of dyspnea (principal); R53.83 Other fatigue; I10 Essential (primary) hypertension
CPT/HCPCS: 36415; 71045; 80053; 82550; 83690; 83735; 83880; 84484; 85025; 93005; 99284

== ENCOUNTER 2020-04-30 16:20 | Outpatient (CLI) | payer MEDICARE, OTHER ==
--- NOTE | 2020-04-30 16:50 | SLEEP CARE CONSULTATION ---
Information from patient questionnaire entered by Miya Long. I have reviewed and concur with the information entered by Miya Long. This document represents the service I personally performed and the decisions made by me, Kortney Felix ARNP. History of Present Illness Service Date and Time: 04/30/2020 1620 Reason for Visit: New patient Chief Complaint: reports: Insomnia (wakes up at 2-3 AM and not able to go to sleep for last 3-4 years), Unrefreshed sleep, Snoring, Observed pauses in breathing ( has seen him gasp when sleeping), Fatigue, Frequent awakenings at night. denies: Excessive daytime sleepiness, Other Date of Onset: years but fatigue in last 3 months Usual bedtime: 2200 Time it takes to fall asleep: 15 minutes Snores at night: Yes Observed to quit breathing while asleep: Yes Sleeps alone due to snoring: Yes Number of times waking at night: 4-5 Reasons for waking at night: reports: Bathroom (then can't get back to sleep). denies: Choking, Snoring, Gasping for air Toss, Turn, or Twitch while sleeping: Yes Recalls having dreams: Yes Usually gets out of bed at: [id number] Feels refreshed in the morning: No Morning headache: No Sleepy or fatigued during the day: Yes Ever fallen asleep while driving: No Takes day naps: No (infrequently) Dreams during day naps: Yes Prior sleep studies: No Additional HPI information: I had the pleasure of seeing ROSALINDA ESTRELLA today regarding the possibility of him having a sleep disorder. His current complaints are insomnia, snoring, observed pauses in breathing, fatigue and frequent night awakenings. His joseph s told him that he gasps in his sleep. He has been having trouble for 3-4 years with waking up early and being unable to go to sleep. He will get up for the bathroom about 2-3 AM and not be able to return to sleep. He has become tired during the day. His tiredness has increased so much in last several months that he has been feeling weak as well as tired. He does not describe it at sleepiness. Recently he has had a 75% improvement with taping mouth shut and opening up nostrils with an insert that opens nostrils while he is sleeping and he has noticed some improvement of his tiredness. He has also had problems with becoming weak and exhausted after exercise in the last several months. He has had labs and other tests when seen in the ED that have all come back normal. He was evaluated by an [facility] who thought he should be tested for sleep apnea because his tests were normal. He does have only part of his thyroid post surgery and is taking levothyroxine. He states all his monitoring labs for his thyroid have been normal. He is follow up with a big data admin tomorrow. - Parasomnia Symptoms Ever been unable to move upon waking from sleep: No Walks in sleep: No Talks in sleep: No Ever acted out dreams in sleep: No Ever felt weak in the knees when startled or emotional: No Bothered by creepy, crawly, restless sensations in legs: No Problems with memory or concentration: No Subjective Initial [place] Sleepiness Scale score: 5 (in 2019) Past Medical History Past Medical History: reports: Hypertension, Arthritis, Arrythmia (intermittent arrhythmia, leaking valve, has cardiolgist appt tomorrow), Hypothyroidism (partial thyroid removed, on supplementation). 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 Patient is Single and lives in [place]. Have you smoked in the past 12 months: No Years of smokin Quit date: 2013 Alcohol use: No Caffeine use: Yes Caffeine amount and frequency: 2 cups coffee/AM Family History Family history of sleep disordered breathing: No Family Hx Sleep Apnea: Father: Snoring, Grandparent: Snoring Allergies and Home Medications Drug allergies reviewed: Yes (erythromycin base, Sulfa) Home medication list reviewed: Yes Allergy and home medication list: Levothyroxine Lisinopril multivitamin Valerian Review of Systems Weight loss over past 5 years: 5 Cardiovascular: reports: high blood pressure. denies: palpitations, chest pain, irregular heart rate or pulse, leg or foot swelling Respiratory: denies: shortness of breath Gastrointestinal: denies: heartburn, difficulty swallowing Urinary: reports: frequency. denies: impotence Neurological: denies: headaches, seizure, head trauma, speech dysfunction, gait or balance problems Psychiatric: denies: Attention Deficit Hyperactivity, anxiety, depression, mood disorder, claustrophobia Ear/Nose/Throat: reports: dry mouth/throat, injury to nose (broke nose 25 yrs ago, had surgery to fix). denies: nasal congestion, sinus problems, nose bleeds, tonsillectomy, wisdom teeth removed Endocrine: reports: thyroid disease (had removed 2000), increased urination, unexplained weakness Musculoskeletal: reports: joint pain, neck pain Immunologic: reports: allergies to food or environment (black pepper, britni, red pepper) Physical Exam Vital signs obtained and entered by: Telehealth visit to limit exposure during Covid pandemic, no vitals Height: 5 ft 10 in Impression and Plan 1. Suspected Obstructive Sleep Apnea-Hypopnea Syndrome, as suggested by a history of loud and irregular snoring, observed cessation of breath while asleep, gasping or choking in sleep, frequent awakening during the night, and unrefreshed sleep. I reviewed with the patient that a narrow oropharynx and obesity are common predisposing factors for obstructive sleep apnea-hypopnea syndrome. I recommend proceeding to polysomnography to confirm the diagnosis and to assess severity. If the patient has significant sleep disordered breathing, a manual CPAP titration study will also be performed to find the optimal treatment pressure. I informed the patient of what the sleep studies involve and after some discussion, obtained agreement to proceed. The pathophysiology of obstructive sleep apnea-hypopnea syndrome was discussed with the patient and health risks of cardiovascular and cerebrovascular disease if not treated. Risks of drowsy driving discussed in detail and patient advised to avoid long distance driving and to brisket puller at the first sign of drowsiness. Patient agreed to plan. * Schedule polysomnography +- manual CPAP titration study. * Avoid long distance driving or driving when feeling sleepy. * Avoid alcohol, sedative and muscle relaxant around bedtime. * Attempt to lose weight. * Review instructions provided by trained office staff on how to prepare for the sleep study. * Return for follow-up after sleep study completed. Counseling Topics: Weight loss health impact Visit Type: Telehealth Video Video Type: Praveen Patient Location: Home Location of Provider: Home Patient agrees and consents to this telehealth visit type: Yes Patient agrees to have their insurance billed: Yes Time Spent with Patient (minutes): 35 Provider Statement: I spent 100% of the Telehealth Video Call with the patient with greater than 50% spent counseling the patient and coordination of care.
== END 2020-04-30 16:21 | disposition home or self-care (01) ==
LOC: SC 16:20
PROVIDERS: ATTEND Nurse Practitioner Family
DX: R06.81 Apnea, not elsewhere classified (principal); G47.8 Other sleep disorders; R06.83 Snoring; G47.00 Insomnia, unspecified; R53.83 Other fatigue

== ENCOUNTER 2021-03-12 12:58 | Outpatient (CLI) | payer MEDICARE, OTHER ==
--- NOTE | 2021-03-12 15:25 | XRAY Report ---
PROCEDURE: Hips 2V BILAT INDICATIONS: BILATERAL HIP PAIN TECHNIQUE: 3 views of the hip were acquired. COMPARISON: None. FINDINGS: Mild bilateral hip joint degeneration. No acute fracture. Lower lumbar spondylosis and facet arthropa thy. Scattered subchondral sclerosis and spurring. Anatomic alignment. IMPRESSION: Mild bilateral hip osteoarthritis. Reviewed by: Francisco Danielle MD on 03/12/2021 3:24 PM PDT Approved by: Francisco Danielle MD on 03/12/2021 3:24 PM PDT Station ID: [id number]
--- NOTE | 2021-03-12 16:57 | MRI Report ---
PROCEDURE: Hip LT W/O INDICATIONS: BILATERAL HIP PAIN TECHNIQUE: Noncontrast coronal T1 spin echo and STIR through the bony pelvis. Coronal and axial T2 fast spin ec ho with fat saturation, sagittal T1 spin echo, and oblique axial T2 fast spin echo with fat saturatio n through the hip. COMPARISON: None. FINDINGS: Image quality: Excellent. Bones and joints: Bone marrow of the pelvic ring and proximal femurs show normal signal throughout. Mild bilateral hip joint space narrowing and periarticular osteophyte formation. No intraosseous lesi ons or fractures. No avascular necrosis of the femoral heads. The visualized lower lumbar spine alfa ears normally aligned. Tendons: The gluteus medius and minimus tendons appear intact, without associated muscle atrophy. T here is mild T2 signal elevation adjacent to the femoral insertion sites of the left gluteus medius a nd minimus tendons. The iliopsoas tendon appears intact, without adjacent bursal fluid collections. The origin of the hamstring tendon is intact at the ischial tuberosity. Labrum and cartilage: The acetabular labrum appears intact in the absence of intra-articular contras t. Cartilage surface of the femoral head appears of normal thickness. The alpha angle of the femur is within normal limits at less than 55 degrees. Soft tissues: Visualized muscles demonstrate normal bulk and internal signal. The proximal sciatic neurovascular bundle appears normal adjacent to the hamstring tendons. No free pelvic fluid. Bladde r wall thickness is normal. Genitourinary structures and bowel loops appear normal where visualized. IMPRESSION: 1. Insertional tendinitis of the left gluteus medius and minimus tendons. 2. Mild bilateral hip osteoarthritis. 3. No fracture nor osseous lesion. Reviewed by: Tal Billy MD on 03/12/2021 4:56 PM PDT Approved by: Tal Billy MD on 03/12/2021 4:56 PM PDT Station ID: [id number]
--- NOTE | 2021-03-12 18:11 | MRI Report ---
PROCEDURE: Hip RT W/O INDICATIONS: BILATERAL HIP PAIN TECHNIQUE: Noncontrast coronal T1 spin echo and STIR through the bony pelvis. Coronal and axial T2 fast spin ec ho with fat saturation, sagittal T1 spin echo, and oblique axial T2 fast spin echo with fat saturatio n through the hip. COMPARISON: None. FINDINGS: Image quality: Excellent. Bones and joints: Mild to moderate bilateral hip joint osteoarthritic changes are seen slightly worse on the right side with joint space narrowing and subchondral sclerosis. There is no marrow edema. No intraosseous lesions or fractures. No avascular necrosis of the femoral heads. The visualized lowe r lumbar spine appears normally aligned. Tendons: The gluteus medius and minimus tendinosis and low-grade partial-thickness tear at their ins ertion on greater trochanter is seen, without associated muscle atrophy. The iliopsoas tendon appear s intact, without adjacent bursal fluid collections. The origin of the hamstring tendon is intact at the ischial tuberosity. Labrum and cartilage: There is thinning of cartilage along superior aspect of femoral head. Subtle si gnal abnormality in superior anterior right hip labrum is seen suggestive of focal labral tear.. The alpha angle of the femur is within normal limits at less than 55 degrees. Soft tissues: Visualized muscles demonstrate normal bulk and internal signal. The proximal sciatic neurovascular bundle appears normal adjacent to the hamstring tendons. No free pelvic fluid. Bladde r wall thickness is normal. Genitourinary structures and bowel loops appear normal where visualized. IMPRESSION: 1. Mild to moderate bilateral hip joint osteoarthritis slightly worse on the right side. No fracture or dislocation. No evidence of avascular necrosis of femoral head. 2. Mild to moderate tendinosis and low-grade partial-thickness tear involving distal right gluteus me dius and minimus tendons at their insertions on greater trochanter. No other muscle or tendon signal abnormality. 3. Suggestion of focal superior anterior right hip labral tear. Reviewed by: Vj Blevins MD on 03/12/2021 6:09 PM PDT Approved by: Vj Blevins MD on 03/12/2021 6:09 PM PDT Station ID: [id number]
== END 2021-03-12 12:59 | disposition home or self-care (01) ==
LOC: DI 12:58
PROVIDERS: ATTEND Internal Medicine
DX: S76.021A Laceration of muscle, fascia and tendon of right hip, initial encounter (principal); R93.6 Abnormal findings on diagnostic imaging of limbs; M76.02 Gluteal tendinitis, left hip; M16.0 Bilateral primary osteoarthritis of hip

== ENCOUNTER 2021-04-21 08:42 | Outpatient (CLI) | payer MEDICARE, OTHER ==
[2021-04-21 15:02] LABS: BUN - BLOOD UREA NITROGEN 20 mg/dL (6-20); CALCIUM 9.4 mg/dL (8.5-10.3); CARBON DIOXIDE - CO2 26 mmol/L (21-32); CHLORIDE 101 mmol/L (101-111); CHOL/HDL RATIO 3.1 (<5.0); CHOLESTEROL 200 mg/dL; GFR - MDRD 73 (>89); GLUCOSE 94 mg/dL (70-100); HDL CHOLESTEROL 65 mg/dL; LDL CHOLESTEROL,CALCULATED 121 mg/dL; LDL/HDL RATIO 1.9 (<3.6); POTASSIUM 4.1 mmol/L (3.5-5.0); SODIUM 135 mmol/L (135-145); TRIGLYCERIDES 71 mg/dL; VLDL CHOLESTEROL 14 mg/dL
[2021-04-21 15:06] LABS: THYROID STIMULATING HORMONE 1.1 uIU/mL (0.34-5.60)
== END 2021-04-21 08:43 | disposition home or self-care (01) ==
LOC: LAB.S 08:42
PROVIDERS: ATTEND Internal Medicine
DX: E03.9 Hypothyroidism, unspecified (principal); I10 Essential (primary) hypertension; Z13.220 Encounter for screening for lipoid disorders
CPT/HCPCS: 36415; 80048; 80061; 83721; 84443

== ENCOUNTER 2021-10-13 13:51 | Outpatient (CLI) | payer MEDICARE, OTHER ==
--- NOTE | 2021-10-13 22:16 | SLEEP CARE CONSULTATION ---
Information from patient questionnaire entered by Sasha Whalen MA. I have reviewed and concur with the information entered by Sasha Whalen MA. This document represents the service I personally performed and the decisions made by me, Gloria Lyles MD, [facility]. History of Present Illness Service Date and Time: 10/13/2021 1351 Reason for follow up: annual (LAST SEEN 04/2020, RE ORDER HST, ) Prior sleep studies: No HPI additional information: To minimize the risk of COVID-19 exposure, the patient has requested and consented to this telephone visit. The patient also agrees to having his insurance billed. HPI: Mr. Charles was seen here almost 2 years ago. A sleep study was ordered but due to COVID outbreak, it was canceled. He now would like to schedule a home sleep apnea test (HSAT). His complains of loud snore and nocturnal choking. His has seen him quit breathing. Due to his hip pain, he now sleeps mostly on his back. Sleep Study - Results Prior sleep studies: No Subjective Initial [place] Sleepiness Scale score: 5 (in 2019) Allergies and Home Medications Drug allergies reviewed: Yes Home medication list reviewed: Yes Allergy and home medication list: Allergies erythromycin base Allergy (Verified 04/20/20 09:49) Unknown Sulfa (Sulfonamide Antibiotics) Allergy (Verified 04/20/20 09:49) Unknown Physical Exam Vital signs obtained and entered by: MAZIN KEBEDE Height: 5 ft 10 in Impression and Plan IMPRESSION: 1. Obstructive Sleep Apnea-Hypopnea Syndrome, as suggested by loud snore, observed apneas, frequent awakenings, and nocturnal choking. I explained to him the difference between the HSAT and in-laboratory polysomnography. He w ould like to proceed with the HSAT. PLAN: 1. HSAT ordered. 2. Return for follow up after the test. Follow up with Sleep Care in: 1-2 months Visit Type: Telehealth ) Patient Location: Home Location of Provider: Office Patient agrees and consents to this telehealth visit type: Yes Patient agrees to have their insurance billed: Yes Time Spent with Patient (minutes): 15 Provider Statement: I spent 100% of the Telehealth Phone Call with the patient with greater than 50% spent counseling the patient and coordination of care.
== END 2021-10-13 13:52 | disposition home or self-care (01) ==
LOC: SC 13:51
PROVIDERS: ATTEND Internal Medicine Pulmonary Disease
DX: G47.8 Other sleep disorders (principal); R06.81 Apnea, not elsewhere classified; R06.83 Snoring

== ENCOUNTER 2021-11-06 19:42 | Outpatient (CLI) | payer MEDICARE, OTHER | END 2021-11-06 19:43 | disposition home or self-care (01) | LOC: SC 19:42 | PROVIDERS: ATTEND Internal Medicine Pulmonary Disease | DX: G47.33 Obstructive sleep apnea (adult) (pediatric) (principal); G47.61 Periodic limb movement disorder | CPT/HCPCS: 95810 ==

== ENCOUNTER 2021-11-17 15:00 | Outpatient (CLI) | payer MEDICARE, OTHER ==
--- NOTE | 2021-11-17 15:21 | SLEEP CARE CONSULTATION ---
Information from patient questionnaire entered by Sasha Whalen MA. I have reviewed and concur with the information entered by Sasha Whalen MA. This document represents the service I personally performed and the decisions made by , Gloria Lyles MD, [facility]. History of Present Illness Service Date and Time: 11/17/2021 1500 Initial [place] Sleepiness Scale score: 5 (in 2019) Additional HPI information: Mr. Charles returned for follow up of the sleep study he had on 11/06/2021. The polysomnography showed that the patient had normal sleep efficiency. The sleep architecture was relatively normal as well. Respiratory monitoring showed moderate obstructive sleep apnea-hypopnea (AHI = 20.3) associated with frequent oxyhemoglobin desaturation and mild hypoxia (allen oxygen saturation of 87%). The respiratory events occurred mainly during supine sleep (supine AHI = 66.7; non-supine = 7.43). Snore was moderate to loud in intensity. There was severe periodic leg movement of sleep not associated with sleep fragmentation. Cardiac rhythm was normal sinus rhythm without significant arrhythmia. No abnormal behavior (parasomnia) observed during the night. The patient was informed of these findings. I explained to him the pathophysiology behind obstructive sleep apnea. We then spent quite a bit of time discussing different treatment options. For mild obstructive sleep apnea, surgery and oral appliance are alternatives to nasal CPAP therapy but in moderate or severe cases, nasal CPAP is the most effective and reliable treatment. Weight loss in an obese individual is strongly recommended. After some discussion, he opted to go with the nasal CPAP therapy. I explained to him how CPAP machine works and what to expect when using the machine. He is encouraged to use CPAP every night especially in the first 2 to 3 nights in order to get used to it. He should call his CPAP supplier or me to discuss any mechanical problem that may occur. If he snores or feels like he is not getting enough air from the machine, he should notify me and I will increase the pressure. Sleep Study - Results Type of Sleep Study: Polysomnography (F/U POLY, 11/06/2021 [facility],) Prior sleep studies: No Allergies and Home Medications Drug allergies reviewed: Yes Home medication list reviewed: Yes Allergy and home medication list: Allergies erythromycin base Allergy (Verified 04/20/20 09:49) Unknown Sulfa (Sulfonamide Antibiotics) Allergy (Verified 04/20/20 09:49) Unknown Review of Systems Review of systems same as previous: Yes Physical Exam Vital signs obtained and entered by: MAZIN KEBEDE Height: 5 ft 10 in Impression and Plan IMPRESSION: 1. Obstructive Sleep Apnea-Hypopnea Syndrome, moderate, associated with mild hypoxemia and sleep fragmentation. Most likely, this is the cause of the patients symptoms of frequent awakenings, unrefreshed sleep, and excessive daytime sleepiness. As mentioned above, the patient will be started on an autoCPAP set between 5 - 15 cmH2O. Depending on his response and compliance he may be brought back for an overnight CPAP titration study. PLAN: 1. Prescription made for an autoCPAP, heated humidifier, and related supplies. 2. Attempt to lose weight and avoid alcohol consumption near bedtime. 3. The patient is again cautioned about driving until his sleepiness completely resolves on the CPAP therapy. 4. Return in one month for follow up. I will assess his response and compliance at that time. Prescriptions: Auto CPAP Follow up with Sleep Care in: 1-2 months Visit Type: Telehealth Video ([phone] HOME) Patient Location: Home Location of Provider: Office Patient agrees and consents to this telehealth visit type: Yes Patient agrees to have their insurance billed: Yes Time Spent with Patient (minutes): 15 Provider Statement: I spent 100% of the Telehealth Video Call with the patient with greater than 50% spent counseling the patient and coordination of care.
== END 2021-11-17 15:01 | disposition home or self-care (01) ==
LOC: SC 15:00
PROVIDERS: ATTEND Internal Medicine Pulmonary Disease
DX: G47.33 Obstructive sleep apnea (adult) (pediatric) (principal)

== ENCOUNTER 2022-02-02 10:55 | Outpatient (CLI) | payer MEDICARE, OTHER ==
--- NOTE | 2022-02-02 10:45 | SLEEP CARE CONSULTATION ---
Information from patient questionnaire entered by Sasha Richards MA. I have reviewed and concur with the information entered by Sasha Richards MA. This document represents the service I personally performed and the decisions made by me, Gloria Lyles MD, [facility]. History of Present Illness Service Date and Time: 02/02/2022 1000 Reason for follow up: first compliance (RESMED, CARDENAS 11/27/2021, PRESSURE CHANGE, ) Prior sleep studies: No Type of Sleep Study: Polysomnography (F/U POLY, 11/06/2021 [facility],) HPI additional information: Mr. Charles was diagnosed to have moderate obstructive sleep apnea-hypopnea syndrome and returns today for follow up of CPAP therapy. The patient recently acquired a new ResMed AirSense 11 from [employer] and was fitted with nasal pillows. He uses the device nightly and all through the night. The compliance report shows that he uses the device 64 nights out of the past 66 nights, averaging 8 hours a night. He complains of no particular problem with the device such as soreness on the face, dry nose, epistaxis, nasal congestion or headache. He thinks that the pressure of 5 - 15 cmH2O is too low at first. On the CPAP therapy he notices improvement in his sleep quality, and that he wakes up feeling fresher in the morning and more awake/alert during the day. [place] Sleepiness Scale score is 1. His notices no snore at all. The average residual AHI is 7.2; and average air leak is 1.8 L/minute. Most of the residual respiratory events were mostly central apneas. The 90th percentile pressure is 9.5 cmH2O. Sleep Study - Results Type of Sleep Study: Polysomnography (F/U POLY, 11/06/2021 [facility],) Prior sleep studies: No CPAP Compliance Data - Data Reviewed with Patient Average duration of nightly device use: 7 HOURS 50 MINUTES Compliance rate %: 100 (12/31/21-01/29/22) Current pressure setting (cmH2O): 5-15 Average residual AHI: 7.2 Central apnea: 5.9 Obstructive apnea: .5 Hypopnea: .6 Average large leak: 1.8 Subjective Initial [place] Sleepiness Scale score: 5 (in 2019) Allergies and Home Medications Drug allergies reviewed: Yes Home medication list reviewed: Yes Allergy and home medication list: Allergies erythromycin base Allergy (Verified 04/20/20 09:49) Unknown Sulfa (Sulfonamide Antibiotics) Allergy (Verified 04/20/20 09:49) Unknown Review of Systems Review of systems same as previous: Yes Physical Exam Vital signs obtained and entered by: Pao RICHARDS CMA AAMA, PRE TELEMED APPT, Height: 5 ft 10 in Impression and Plan IMPRESSION: 1. Obstructive Sleep Apnea-Hypopnea Syndrome, moderate, with the patient continuing to do well on nasal CPAP therapy. He has excellent compliance and significant clinical benefits. The current pressure appears slightly ineffective and comfortable. Because most the residual respiratory events were central apneas, I will lower the pressure range. If there is no improvement, a manual CPAP/BiPAP titration study will be ordered. PLAN: 1. Lower autoCPAP to 6 - 12 cm H2O via the modem. 2. Lower the humidity and tube temperature if he feels too warm. 3. Return in one year for follow up or earlier if there is any problem with the treatment Follow up with Sleep Care in: 1 year Visit Type: Telehealth ) Patient Location: Home Location of Provider: Office Patient agrees and consents to this telehealth visit type: Yes Patient agrees to have their insurance billed: Yes Provider Statement: I spent 100% of the Telehealth Phone Call with the patient with greater than 50% spent counseling the patient and coordination of care.
== END 2022-02-02 10:56 | disposition home or self-care (01) ==
LOC: SC 10:55
PROVIDERS: ATTEND Internal Medicine Pulmonary Disease
DX: G47.33 Obstructive sleep apnea (adult) (pediatric) (principal)

== ENCOUNTER 2022-04-16 07:29 | Outpatient (CLI) | payer MEDICARE, OTHER ==
[2022-04-16 15:13] LABS: CALCIUM 9.5 mg/dL (8.5-10.3); CREATININE 1.1 mg/dL (0.6-1.2); POTASSIUM 4.2 mmol/L (3.5-5.0)
[2022-04-16 15:19] LABS: THYROID STIMULATING HORMONE 0.21 uIU/mL (0.34-5.60)
[2022-04-16 16:31] LABS: FREE T4 (FREE THYROXINE) 1.4 ng/dL (0.58-1.64)
== END 2022-04-16 07:30 | disposition home or self-care (01) ==
LOC: LAB.S 07:29
PROVIDERS: ATTEND Internal Medicine
DX: Z00.00 Encounter for general adult medical examination without abnormal findings (principal); E03.9 Hypothyroidism, unspecified; I10 Essential (primary) hypertension
CPT/HCPCS: 36415; 80048; 82306; 84439; 84443

== ENCOUNTER 2022-09-28 01:33 | Inpatient (IN) | payer MEDICARE, OTHER ==
--- NOTE | 2022-09-28 01:50 | ED Physician Documentation ---
PD HPI ABD PAIN - Stated complaint Stated Complaint: ABD PX - Chief complaint Chief Complaint: Abd Pain - History obtained from History obtained from: Patient - Additional information Additional information: HPI from patient. Patient complains of 6 days of right lower quadrant abdominal pain. He says the pain began immediately after eating "bad feliz" (per patient). He says the pain initially was in the epigastric area but rapidly migrated downwards and has become focused and isolated to the right lower quadrant. He denies nausea, vomiting, diarrhea. He denies fevers. The pain is worse with palpation, but he does not note any other exacerbating factors. No ameliorating factors. He says he has not had these symptoms in the past. He has no past abdominal surgical history Review of Systems Constitutional: denies: Fever, Chills, Sweats Cardiac: reports: Reviewed and negative Respiratory: reports: Reviewed and negative GI: reports: Abdominal Pain. denies: Abdominal Swelling, Nausea, Vomiting, Constipation, Diarrhea, Hematemesis, Bloody / black stool : denies: Dysuria, Frequency PD PAST MEDICAL HISTORY - Past Medical History Cardiovascular: None, Hypertension, High cholesterol Respiratory: None Endocrine/Autoimmune: None GI: None - Past Surgical History Past Surgical History: Yes - Present Medications Home Medications: Ambulatory Orders Medication Instructions Recorded Confirmed Levothyroxine [Synthroid] 100 mcg PO DAILY 01/24/17 09/28/22 lisinopriL [Lisinopril] 20 tab PO DAILY 01/24/17 09/28/22 Gabapentin [Neurontin] 100 mg PO HS 09/28/22 09/28/22 - Allergies Allergies/Adverse Reactions: Allergies Allergy/AdvReac Type Severity Reaction Status Date / Time erythromycin base Allergy Unknown Verified 09/28/22 01:38 Sulfa (Sulfonamide Allergy Unknown Verified 09/28/22 01:38 Antibiotics) - Social History Does the pt smoke?: No Smoking Status: Never smoker Does the pt drink ETOH?: No Does the pt have substance abuse?: No - Immunizations Immunizations are current?: Yes PD ED PE NORMAL - Vitals Vital signs reviewed: Yes - General General: Alert and oriented X 3, No acute distress, Well developed/nourished - HEENT HEENT: Moist mucous membranes - Neck Neck: Supple, no meningeal sign - Cardiac Cardiac: RRR, No murmur - Respiratory Respiratory: No respiratory distress, Clear bilaterally - Abdomen Abdomen: Soft, Non distended, Other (RLQ TTP without rebound , guarding, mass. no inguinal mass nor tenderness) - Back Back: No CVA TTP - Derm Derm: Normal color, Warm and dry Results - Vitals Vitals: Vital Signs - 24 hr 09/28/22 09/28/22 09/28/22 01:40 02:07 04:00 Temperature 37.0 C Heart Rate 87 78 72 Respiratory 16 16 Rate Blood Pressure 127/76 142/75 H 133/71 H O2 Saturation 100 96 100 09/28/22 06:00 Temperature Heart Rate 65 Respiratory Rate Blood Pressure 117/68 O2 Saturation 100 Oxygen O2 Source Room air - Labs Labs: Laboratory Tests 09/28/22 09/28/22 09/28/22 01:51 02:45 03:41 WBC 12.3 H RBC 4.85 Hgb 14.6 Hct 46.2 MCV 95.3 H MCH 30.1 MCHC 31.6 L RDW 13.2 Plt Count 296 MPV 8.9 Neut # (Auto) 8.5 H Lymph # (Auto) 2.3 Cotton # (Auto) 1.3 H Eos # (Auto) 0.1 Baso # (Auto) 0.0 Absolute Nucleated RBC 0.00 Nucleated RBC % 0.0 Sodium 135 Potassium 4.3 Chloride 104 Carbon Dioxide 25 Anion Gap 6.0 BUN 12 Creatinine 1.1 Estimated GFR (MDRD) 65 L Glucose 105 H Calcium 8.8 Total Bilirubin 0.7 AST 18 ALT 21 Alkaline Phosphatase 38 L Total Protein 6.4 L Albumin 3.3 Globulin 3.1 Albumin/Globulin Ratio 1.1 Lipase 36 Urine Color YELLOW Urine Clarity CLEAR Urine pH 7.0 Ur Specific [place] 1.010 Urine Protein NEGATIVE Urine Glucose (UA) NEGATIVE Urine Ketones NEGATIVE Urine Occult Blood NEGATIVE Urine Nitrite NEGATIVE Urine Bilirubin NEGATIVE Urine Urobilinogen 0.2 (NORMAL) Ur Leukocyte Esterase NEGATIVE Ur Microscopic Review NOT INDICATED Urine Culture Comments NOT INDICATED - Rads (name of study) CT A/P with IV contrast Relevant Findings:: Prelim report reviewed, See rad report PD Medical Decision Making - ED course Complexity details: reviewed results, re-evaluated patient, considered differential, d/w patient ED course: Minimal leukocytosis noted on CBC (white blood cell count 12.3). CT of the abdomen and pelvis demonstrates "abnormal distention and thickening of the appendix with periappendiceal fat stranding consistent with acute appendicitis. No indication of appendiceal rupture.", per radiologist's reading. I discussed these results with the patient. I explained to him that he would be held in the emergency department until the surgeon comes in in the morning, and the plan would be that he would go to the operating room later this morning to have his appendix removed. He declined pain medication on initial evaluation as well as on reevaluation, but eventually, later in stay, began to have increasing pain and requested pain medication. He is given 4 mg morphine IV as well as 4 mg Zofran IV (as prophylaxis against possible n/v due to the morphine). Maintenance fluids started (normal saline at 100 ml/hour) and he is NPO. I discussed the case with Dr. Hernandez, on-call surgery for [facility]. She will evaluate patient in the emergency department later this morning with plan for appendectomy later in the morning. Departure - Departure Disposition: ED Transfer to [facility] Clinical Impression: Appendicitis Qualifiers: Appendicitis type: acute appendicitis Acute appendicitis type: with localized peritonitis Appendicitis gangrene presence: without gangrene Appendicitis perforation presence: without perforation Appendicitis abscess presence: without abscess Qualified Code(s): K35.30 - Acute appendicitis with localized peritonitis, without perforation or gangrene Condition: Good
[2022-09-28 01:59] LABS: BASOPHILS % (AUTO) 0.2 %; EOSINOPHILS # (AUTO) 0.1 10^3/uL (0.0-0.7); EOSINOPHILS % (AUTO) 1.1 %; HCT - HEMATOCRIT 46.2 % (42.0-52.0); HGB - HEMOGLOBIN 14.6 g/dL (14.0-18.0); LYMPHOCYTES # (AUTO) 2.3 10^3/uL (1.5-3.5); LYMPHOCYTES % (AUTO) 18.8 %; MEAN CORPUSCULAR HEMOGLOBIN 30.1 pg (27.0-31.0); MEAN CORPUSCULAR HGB CONC 31.6 g/dL (32.0-36.0); MEAN CORPUSCULAR VOLUME 95.3 fL (80.0-94.0); MEAN PLATELET VOLUME 8.9 fL (7.4-11.4); MONOCYTES # (AUTO) 1.3 10^3/uL (0.0-1.0); MONOCYTES % (AUTO) 10.5 %; NEUTROPHILS # (AUTO) 8.5 10^3/uL (1.5-6.6); NEUTROPHILS % (AUTO) 68.8 %; PLT - PLATELET COUNT 296 10^3/uL (130-450); RED BLOOD COUNT 4.85 10^6/uL (4.70-6.10); RED CELL DISTRIBUTION WIDTH 13.2 % (12.0-15.0); WHITE BLOOD COUNT 12.3 x10^3/uL (4.8-10.8)
[2022-09-28] MEDS ORDERED: iohexoL-300 100 ML VIAL ONE (02:14)
[2022-09-28 03:20] LABS: ALBUMIN 3.3 g/dL (3.2-5.5); ALBUMIN/GLOBULIN RATIO 1.1 (1.0-2.2); BILIRUBIN,TOTAL 0.7 mg/dL (0.2-1.0); CALCIUM 8.8 mg/dL (8.5-10.3); CREATININE 1.1 mg/dL (0.6-1.2); POTASSIUM 4.3 mmol/L (3.5-5.0); TOTAL PROTEIN 6.4 g/dL (6.7-8.2)
[2022-09-28] MEDS ORDERED: iohexoL-300 100 ML VIAL IVP ONE (03:50)
[2022-09-28 03:54] LABS: BILIRUBIN,URINE NEGATIVE (NEGATIVE); CLARITY,URINE CLEAR (CLEAR); GLUCOSE, URINE (UA) NEGATIVE (NEGATIVE); KETONES,URINE (UA) NEGATIVE (NEGATIVE); LEUKOCYTE ESTERASE, URINE NEGATIVE (NEGATIVE); NITRITE,URINE NEGATIVE (NEGATIVE); OCCULT BLOOD,URINE NEGATIVE (NEGATIVE); PROTEIN,URINE NEGATIVE (NEGATIVE); UROBILINOGEN,URINE 0.2 (NORMAL) E.U./dL (NORMAL)
[2022-09-28] MEDS ORDERED: SODIUM CHLORIDE 0.9% 1,000 ML IV STA (04:24)
[2022-09-28] MEDS ORDERED: MORPHINE 2 MG/ML CARPUJECT IVP STA (04:51)
[2022-09-28] MEDS ORDERED: ONDANSETRON 4 MG/2 ML VIAL IVP STA (04:52)
--- NOTE | 2022-09-28 07:35 | SURGERY HX AND PHYSICAL(T) ---
Surgical History & Physical - Chief Complaint/HPI Chief Complaint: abdominal pain History of Present Illness: This is a very pleasant 77-year-old gentleman who reports he has started having some vague abdominal pain about 6 days ago after eating some "old feliz". Initially, the patient had vague abdominal pain about the umbilicus that throughout the day migrated to the right lower quadrant. He continued to have vague, mild pain for several days. Last night, his pain acutely worsened, pr ompting him to come to the emergency department. He denies any nausea, vomiting, constipation, or diarrhea. His appetite has remained relatively normal over the last several days. He denies any blood in his stool or melanotic stool. He has never had similar pain in the past. He states he has had colonoscopies in the past and his most recent was about 5 to 6 years ago. He has never had any colon polyps. He has no family history of colon cancer. He has no personal history of previous abdominal surgery.Last p.o. intake was last night. - PMH/PSH/Social Hx Does the pt have a hx of MRSA?: No Eyes, Ears, Nose, Throat: None Cardiovascular: Hypertension, High cholesterol Respiratory: None Endocrine/Autoimmune: None Gastrointestinal: None Urinary: Benign prostate hypertrophy, Kidney stones, Other (Chronic scarring of the prostate) Musculoskeletal: Osteoarthritis Blood Disorders: None Psychiatric: None General: Colonoscopy (Most recently, 5 to 6 years ago per patient. No history of colon polyps) Orthopedic: Shoulder arthroplasty Urologic: Ureterolithotomy (stones), Prostatic surgery (X6) Smoking Status: Never smoker Does the pt drink ETOH?: No Does the pt have substance abuse?: No - Family Hx Family Hx: Unremarkable - Home Meds and Allergies Home Medications: Levothyroxine [Synthroid] 100 mcg PO DAILY 01/24/17 lisinopriL [Lisinopril] 20 tab PO DAILY 01/24/17 Gabapentin [Neurontin] 100 mg PO HS 09/28/22 Allergies/Adverse Reactions: Allergies Allergy/AdvReac Type Severity Reaction Status Date / Time erythromycin base Allergy Unknown Verified 09/28/22 01:38 Sulfa (Sulfonamide Allergy Unknown Verified 09/28/22 01:38 Antibiotics) - Review of Systems Constitutional: Other (A complete 10 point review of symptoms is otherwise negative except for that noted in HPI and PMH.) - Vital Signs Heart Rate: 65 Blood Pressure: 117/68 Temperature: 37.0 C Respiratory Rate: 16 O2 Saturation: 100 Weight (kg): 83.007 kg Height: 1.8 m - Physical Exam General Appearance: positive: Other Comments/Other: GEN: No acute distress, appears younger than stated age, alert and oriented HEENT: NCAT, MMM, EOMI NEURO: CN II-XII grossly intact, no obvious focal deficits CV: RRR, no murmer appreciated PULM: on room air, nonlabored breathing ABD: soft, with point tenderness in the right lower quadrant associated with voluntary guarding, negative Rovsing sign, negative psoas sign, no rebound CIRCULATORY: no clubbing, cyanosis, or edema SKIN: no lesions appreciated LYMPH: no obvious lymphadenopathy MSK: 4/4 strength in all extremities PSYCH: Affect is appropriate - Patient Review Patient Review: Problems were reviewed with the patient during this visit. Medications were reviewed with the patient during this visit. Allergies were reviewed this patient during this visit. Pertinent Tests Reviewed: All pertitent test for this patient were reviewed. - Assessment & Plan Assessment and Plan: This is a 77-year-old gentleman with: 1. Acute appendicitis The patient's laboratory studies, physical exam, and imaging are consistent with this diagnosis. The patient's history is more prolonged than I would expect, but he may have just started having acute symptoms yesterday. He does note a marked increase in his pain yesterday afternoon/evening. The patient CT scan shows some thickening of the cecum, this may be inflammatory in nature. There is some concern this could represent an underlying malignant process. He has had a colonoscopies in the past, most recently approximately 5 to 6 years ago per patient. He does not have any free air or free fluid suggestive of perforation. -I discussed the natural history of appendicitis with the patient. We also discussed the risks, benefits, and alternatives of laparoscopic appendectomy, including the alternative of managing appendicitis with antibiotics alone. We discussed surgical risks including bleeding, infection, and damage to surrounding structures. We also discussed the intraoperative and postoperative plan including the possible need for drain placement and possibility of abscess formation after the procedure which is due to the disease process, not necessarily a complication of the surgery. I also discussed the possibility of a right hemicolectomy if there is not a safe place to staple across the base of the appendix, and it appears there is an underlying cancer intraoperatively. The patient voiced understanding, his questions were answered, and he wished to proceed with surgery. A consent was signed by the patient prior to surgery. The patient's was at bedside, and her questions were answered as well. -Plan for likely discharge to home later today -The patient will need to follow-up with me in 2 weeks 2. BPH, prostatic scarring -Plan for the patient to void directly before surgery, and hopefully avoid Barney catheter placement for surgery given this history 3. Hypothyroidism, hypertension, osteoarthritis, obstructive sleep apnea -I will restart the patient's home medications on discharge
[2022-09-28] MEDS ORDERED: BUPIVACAINE 0.25% PF 30 ML VIAL ONE (07:57)
[2022-09-28] MEDS ORDERED: LIDOCAINE MPF 2%-EPI 1:200000 20 ML VIAL ONE (07:57)
[2022-09-28] MEDS ORDERED: SUGAMMADEX 200 MG/2 ML VIAL IVP ONE (08:10)
[2022-09-28] MEDS ORDERED: fentaNYL 100 MCG/2 ML VIAL ONE ×2 (08:10→11:37)
[2022-09-28] MEDS ORDERED: MIDAZOLAM 2 MG/2 ML VIAL ONE (08:10)
[2022-09-28] MEDS ORDERED: ROCURONIUM 50 MG/5 ML VIAL ONE ×2 (08:11→11:32)
[2022-09-28] MEDS ORDERED: LIDOCAINE-PF 2% 10 ML AMP SUBQ ONE (08:11)
[2022-09-28] MEDS ORDERED: ONDANSETRON 4 MG/2 ML VIAL ONE (08:11)
[2022-09-28] MEDS ORDERED: PROPOFOL 200 MG/20 ML VIAL IVP ONE (08:11)
--- NOTE | 2022-09-28 08:19 | ANESTHESIA ---
Pre-Anesthesia VS, & Labs - Diagnosis acute appendicitis - Procedure lap appy Vital Signs: Temp Pulse Resp BP Pulse Ox O2 Flow Rate 37.0 C 64 16 139/71 H 100 09/28/22 07:45 09/28/22 08:00 09/28/22 08:00 09/28/22 08:00 09/28/22 08:00 Height: 5 ft 11 in Weight (kg): 83.007 kg Body Mass Index: 25.5 BMI Classification: Overweight - NPO >8 hours - Lab Results Current Lab Results: Laboratory Tests 09/28/22 02:45: Sodium 135, Potassium 4.3, Chloride 104, Carbon Dioxide 25, Anion Gap 6.0, BUN 12, Creatinine 1.1, Estimated GFR (MDRD) 65 L, Glucose 105 H, Calcium 8.8, Total Bilirubin 0.7, AST 18, ALT 21, Alkaline Phosphatase 38 L, Total Protein 6.4 L, Albumin 3.3, Globulin 3.1, Albumin/Globulin Ratio 1.1, Lipase 36 09/28/22 01:51: WBC 12.3 H, RBC 4.85, Hgb 14.6, Hct 46.2, MCV 95.3 H, MCH 30.1, MCHC 31.6 L, RDW 13.2, Plt Count 296, MPV 8.9, Neut # (Auto) 8.5 H, Lymph # (Auto) 2.3, [place] # (Auto) 1.3 H, Eos # (Auto) 0.1, Baso # (Auto) 0.0, Absolute Nucleated RBC 0.00, Nucleated RBC % 0.0 Fish Bones: 09/28/22 01:51 09/28/22 02:45 Home Medications and Allergies Home Medications: Ambulatory Orders Gabapentin [Neurontin] 100 mg PO HS 09/28/22 Active Medications Sodium Chloride (Normal Saline 0.9%) 1,000 mls @ 100 mls/hr IV .Q10H STA Stop: 09/28/22 14:23 Last Admin: 09/28/22 04:34 Dose: 100 mls/hr Levothyroxine [Synthroid] 100 mcg PO DAILY 01/24/17 lisinopriL [Lisinopril] 20 tab PO DAILY 01/24/17 Gabapentin [Neurontin] 100 mg PO HS 09/28/22 Allergies/Adverse Reactions: Allergies Allergy/AdvReac Type Severity Reaction Status Date / Time Sulfa (Sulfonamide Allergy Severe Unknown Verified 09/28/22 08:18 Antibiotics) erythromycin base Allergy Unknown Verified 09/28/22 01:38 Anes History & Medical History - Anesthetic History Anesthesia Complications: reports: No previous complications Family history of Anesthesia Complications: Denies Family history of Malignant Hyperthermia: Denies - Medical History Cardiovascular: reports: Hypertension, High cholesterol Pulmonary: reports: Sleep apnea, CPAP use Gastrointestinal: reports: None Urinary: reports: Benign prostate hypertrophy, Kidney stones, Other (Chronic scarring of the prostate) Musculoskeletal: reports: Osteoarthritis Endocrine/Autoimmune: reports: HyPOthyroidism Blood Disorders: reports: None Smoking Status: Former smoker Psychosocial: reports: No issues indicated History of Cancer?: Yes (thyroid) - Surgical History General: reports: Colonoscopy (Most recently, 5 to 6 years ago per patient. No history of colon polyps) Urologic: reports: Ureterolithotomy (stones), Prostatic surgery (X6) Orthopedic: reports: Shoulder arthroplasty Dermatologic: reports: Skin cancer surgery Other Past Surgical History: partial thyroidectomy Exam General: Alert, Oriented x3, Cooperative Dental: WNL Mouth Opening: Greater than 4 Fingerbreadths Neck Mobility: Normal Mallampati classification: I Thyromental Distance: 4-6 cm Respiratory: Lungs clear Cardiovascular: Regular rate Plan Anesthesia Type: General Consent for Procedure(s) Verified and Reviewed: Yes Code Status: Attempt Resuscitation ASA classification: 3-Severe systemic disease Is this case an emergency?: No
[2022-09-28] MEDS ORDERED: MORPHINE 2 MG/ML CARPUJECT IVP PRN (08:22)
[2022-09-28] MEDS ORDERED: ONDANSETRON 4 MG/2 ML VIAL IVP PRN (08:22)
[2022-09-28] MEDS ORDERED: ePHEDrine 50 MG/ML VIAL IVP PRN (08:22)
[2022-09-28] MEDS ORDERED: METOCLOPRAMIDE 10 MG/2 ML VIAL IVP PRN (08:22)
[2022-09-28] MEDS ORDERED: fentaNYL 100 MCG/2 ML VIAL IVP PRN (08:22)
[2022-09-28] MEDS ORDERED: NALOXONE 0.4 MG/ML VIAL IVP PRN (08:22)
[2022-09-28] MEDS ORDERED: ATROPINE ABBOJECT 1 MG/10 ML SYRINGE IVP PRN (08:22)
[2022-09-28] MEDS ORDERED: LACTATED RINGERS 1,000 ML IV SCH (09:00)
[2022-09-28] MEDS ORDERED: metroNIDAZOLE 500 MG/100 ML 500 MG/100 ML BAG ONE (10:20)
[2022-09-28] MEDS ORDERED: BUPIVACAINE 0.25% PF 30 ML VIAL SUBQ ONE ×2 (10:37→13:00)
[2022-09-28] MEDS ORDERED: LIDOCAINE MPF 2%-EPI 1:200000 20 ML VIAL SUBQ ONE ×2 (10:37→13:00)
[2022-09-28] MEDS ORDERED: ACETAMINOPHEN 1,000 MG/100 ML 1,000 MG/100 ML BAG IV ONE (11:38)
[2022-09-28] MEDS ORDERED: LACTATED RINGERS 1,000 ML IV ONE (13:05)
[2022-09-28] MEDS ORDERED: PHENOL THROAT SPRAY 177 ML MM PRN (13:06)
[2022-09-28] MEDS ORDERED: polyethylene glycoL 3350 17 GM PACKET PO PRN (13:06)
[2022-09-28] MEDS ORDERED: HYDROmorphone 0.5 MG/0.5 ML SYRINGE IVP PRN (13:06)
--- NOTE | 2022-09-28 13:21 | OPERATIVE REPORT ---
Operative Report - General Procedure Date: 09/28/22 Planned Procedure: laparoscopic appendectomy, possible colon resection Pre-Op Diagnosis: acute appendicitis Procedure Performed: laparoscopic assisted right hemicolectomy, primary repair of umbilical hernia Post Op Diagnosis: right colon mass, umbilical hernia - Procedure Note Primary Surgeon: Dr. Alba Hernandez Secondary Surgeon: Dr. Darek Brown Anesthesia Technique: General ET tube, Local Pathology: right colon Estimated Blood Loss (mL): 50 Indications: The patient presented with a right day history of right-sided abdominal pain that acutely worsened this morning. He had a mildly elevated white count and a CT scan which demonstrated acute appendicitis and thickening of the cecum. I discussed the risks, benefits, and alternatives of surgery versus antibiotics alone for acute appendicitis with the patient and his . Also discussed the possibility of needing a colon resection depending on intraoperative findings. Risks include but are not limited to bleeding, infection, damage to surrounding structures, and the need for further surgeries or procedures. The patient voiced understanding, his questions were answered, and he wished to proceed. A consent was signed by the patient prior to surgery. Findings: 1. Large, adherent right colon mass at the appendiceal orifice 2. Base of the appendix is involved with the mass 3. Umbilical hernia Complications: None - Other Other Information/Narrative: The patient received some ERAS medications but this was limited due to the saira schafer's emergent presentation and preoperative antibiotics. He was brought to the operative suite and placed in the supine position. General endotracheal anesthesia was induced and patient was then placed in the supine position. Due to the patient's history of urethral scarring and multiple prostate surgeries, he voided just before surgery to avoid placement of a Barney catheter. He was prepped and draped in the usual sterile fashion. A preop surgical timeout was performed. Local anesthetic was injected into the skin and subcutaneous tissues just superior to the umbilicus. An 11 blade scalpel was used to make a 5 mm transverse skin incision in this location. Next, a hemostat was used to spread the tissues down to the level of the fascia and a Derrek clamp was used to grasp and elevate the umbilical stalk. A Varess needle was used to gain access to the peritoneal space. Low flow insufflation revealed low pressures and then high flow insufflation was undertaken to 15 mmHg. Next, the Varess needle was removed and a 5 mm laparoscopic port was inserted in this location. Through this port, a 5 mm 30 degree laparoscope was inserted. On inspection of the abdomen no injury was caused on entry. Next, the patient was placed in Trendelenburg and rotated slightly to the left. 2 more ports were inserted. A 5 mm port was inserted in the suprapubic region, and a 12 mm port was inserted in the left lower quadrant. Both ports were placed by first anesthetizing the skin and subcutaneous tissues with local anesthetic, then by making an appropriate length incision with an 11 blade scalpel, and finally by placing the port under direct laparoscopic vision. Once the ports were in place, 2 atraumatic graspers were used to identify the area of concern. The appendix, terminal ileum, and cecum were adhered to eachother and the anterior abdominal wall. There was localized inflammation, but the remainder of the abdomen appeared benign. Gentle dissection with the suction tip and atraumatic graspers was used to isolate the appendix from the surrounding tissues. The base of the appendix could not be from the cecum and the cecum in the area of the appendiceal orifice was very firm and concerning for a cancer. Based on the patient's preoperative CT findings, and this intraoperative finding, I elected to proceed with a laparoscopic right hemicolectomy. Due to the surgical complexity of this case, I asked Dr. Brown to assist. Due to the adherent nature of the cecum, I elected to place a periumbilical HandPort implant for a hand-assisted approach. Local was injected into the skin and subcutaneous tissues in the location of the periumbilical incision. The incision was made with a 10 blade scalpel and carried down to the level of the fascia using blunt and sharp dissection with electrocautery. The fascia was incised the length of the incision, with care taken to stay in the midline. The HandPort was placed, and the abdomen was reinsufflated. The lateral attac hments of the colon to the peritoneum, the white line of Toldt, was taken down starting at the cecum and working toward the hepatic flexure. These attachments were taken down with a laparoscopic harmonic scalpel, taking great care to only cauterize through those tissues we could easily see through. Gentle, medial retraction was used to mobilize the colon. The terminal ileum was mobilized in a similar fashion, to allow for evisceration of the structures, resection, and anastomosis. At this time, the terminal ileum, cecum, and right colon were free enough to easily eviscerate. The abdomen was deflated and the right colon was eviscerated through the Luis O wound retractor at the umbilical port. Next, 2 blue towels were placed and the sites for the proximal and distal resection margins were chosen on the distal ileum and the proximal ascending colon. These 2 pieces of bowel were brought into apposition and found to lie comfortably next to each other. A stay suture of 3-0 Vicryl was placed to approximate the antimesenteric borders of the bowel segments. Enterotomies were made on the antimesenteric aspects of the terminal ileum and ascending colon and the linear cutting stapler was inserted and fired. The proximal and distal resection margins incorporated the common enterotomy and 2 additional blue staple loads were fired across the bowel to achieve this resection. Then, the mesentery was divided using an impact LigaSure device and the specimen was passed off and labeled right colon. The mesenteric defect was not closed. The anastomosis was palpated and found to be intact and widely patent. Next, the abdominal cavity was copiously irrigated and hemostasis was confirmed. Then, the fascia was closed with a running 2-0 PDS suture. A [id number] suture of PDS was placed to reapproximate the fascia at the left lower quadrant, 10 mm port site. Next, the subcutaneous tissues were irrigated with normal saline. Finally, the skin edges were reapproximated using skin emil. The patient tolerated the procedure well. There were no complications. All counts were correct. He was extubated at the end of the case. He was transferred to the recovery room in stable condition.
--- NOTE | 2022-09-28 13:45 | CT Report ---
PROCEDURE: ABDOMEN/PELVIS W INDICATIONS: RLQ pain, tenderness CONTRAST: : 100 ML OMNI 300 TECHNIQUE: After the administration of intravenous contrast, 5 mm thick sections acquired from the diaphragms to the symphysis. 5 mm thick coronal and sagittal reformats were acquired. For radiation dose reducti on, the following was used: automated exposure control, adjustment of mA and/or kV according to lex ent size. COMPARISON: None FINDINGS: Lung bases and heart: Unremarkable. Liver: Unremarkable. Gallbladder and biliary tree: Unremarkable. Bile ducts measure within normal limits. Spleen: Unremarkable. Pancreas: Unremarkable. Adrenals: No nodules. Kidneys: Nonobstructing left renal stone measuring less than 4 mm. Bowel and peritoneum: The appendix is distended, thick-walled, with periappendiceal fat stranding. No adjacent gas. Lymph nodes: No central or retroperitoneal adenopathy. Vessels: No aortic aneurysm. PELVIS Reproductive organs: Prior TURP. Bladder and ureters: Unremarkable. Lymph nodes: No pelvic adenopathy. Bones: No aggressive osseous abnormality. Other: None IMPRESSION: 1.Uncomplicated acute appendicitis. No evidence perforation. Agree with preliminary report. Reviewed by: Tal Ruvalcaba on 09/28/2022 8:04 AM PDT Approved by: Tal Ruvalcaba on 09/28/2022 8:04 AM PDT Station ID: [id number]
[2022-09-28] MEDS: HYDROmorphone 0.5 MG/0.5 ML SYRINGE IVP PRN ×3 (13:55→16:02)
[2022-09-28] MEDS ORDERED: SODIUM CHLORIDE 0.9% IV SCH (14:00)
[2022-09-28] MEDS ORDERED: CEFAZOLIN IV SCH (14:00)
[2022-09-28] MEDS ORDERED: metroNIDAZOLE 500 MG/100 ML 500 MG/100 ML BAG IV SCH (14:00)
[2022-09-28] MEDS ORDERED: HYDROmorphone 0.5 MG/0.5 ML SYRINGE ONE ×2 (14:12→16:03)
--- NOTE | 2022-09-28 16:16 | ANESTHESIA POST OP EVALUATION ---
Anesthesia Post Eval - Post Anesthesia Eval Vitals: Last Vital Signs Temp 36.8 C 09/28/22 16:02 Pulse 101 H 09/28/22 16:02 Resp 18 09/28/22 16:02 BP 147/81 H 09/28/22 16:02 Pulse Ox 98 09/28/22 16:02 O2 Flow Rate CV Function Including HR & BP: Stable Pain Control: Satisfactory Nausea & Vomiting: Negative Mental Status: Baseline Respiratory Status: Airway Patent Hydration Status: Satisfactory Anesthesia Complications: None
[2022-09-28] MEDS: LACTATED RINGERS 1,000 ML IV SCH ×2 (16:48→21:27)
[2022-09-28] MEDS: metroNIDAZOLE 500 MG/100 ML 500 MG/100 ML BAG IV SCH (16:50)
[2022-09-28] MEDS: ACETAMINOPHEN 325 MG TABLET PO SCH ×2 (17:00→21:25)
[2022-09-28] MEDS: IBUPROFEN 600 MG TABLET PO SCH ×2 (17:35→23:42)
[2022-09-28] MEDS: lisinopriL 20 MG TABLET PO SCH (17:36)
[2022-09-28] MEDS: LEVOTHYROXINE 100 MCG TABLET PO SCH (17:36)
[2022-09-28] MEDS: oxyCODONE 5 MG TABLET PO PRN (21:25)
[2022-09-28] MEDS: GABAPENTIN 100 MG CAPSULE PO SCH (21:26)
[2022-09-29] MEDS: ACETAMINOPHEN 325 MG TABLET PO SCH ×6 (01:37→21:29)
[2022-09-29] MEDS: metroNIDAZOLE 500 MG/100 ML 500 MG/100 ML BAG IV SCH (01:38)
[2022-09-29] MEDS: oxyCODONE 5 MG TABLET PO PRN (04:12)
[2022-09-29 04:50] LABS: BASOPHILS % (AUTO) 0.2 %; EOSINOPHILS % (AUTO) 0.2 %; HCT - HEMATOCRIT 38.1 % (42.0-52.0); HGB - HEMOGLOBIN 12.2 g/dL (14.0-18.0); LYMPHOCYTES # (AUTO) 1.3 10^3/uL (1.5-3.5); LYMPHOCYTES % (AUTO) 9.9 %; MEAN CORPUSCULAR HEMOGLOBIN 30.9 pg (27.0-31.0); MEAN CORPUSCULAR VOLUME 96.5 fL (80.0-94.0); MONOCYTES # (AUTO) 1.2 10^3/uL (0.0-1.0); MONOCYTES % (AUTO) 9.7 %; NEUTROPHILS # (AUTO) 10.1 10^3/uL (1.5-6.6); NEUTROPHILS % (AUTO) 79.6 %; PLT - PLATELET COUNT 235 10^3/uL (130-450); RED BLOOD COUNT 3.95 10^6/uL (4.70-6.10); RED CELL DISTRIBUTION WIDTH 13.2 % (12.0-15.0); WHITE BLOOD COUNT 12.6 x10^3/uL (4.8-10.8)
[2022-09-29 05:00] LABS: CREATININE 1.2 mg/dL (0.6-1.2); POTASSIUM 4.4 mmol/L (3.5-5.0)
[2022-09-29] MEDS: LACTATED RINGERS 1,000 ML IV SCH (06:45)
[2022-09-29] MEDS: IBUPROFEN 600 MG TABLET PO SCH (06:45)
--- NOTE | 2022-09-29 07:00 | PROVIDER PROGRESS NOTE ---
Subjective - General Admit Date: 09/28/22 Procedure Date: 09/28/22 Post Op Days: 1 Procedure Performed: lap assisted right hemicolectomy, umbilical hernia repair - Review of Systems Wound/Incisions: positive: Healing well, Drainage (small amount of serosang drainage on midline dressing). negative: Erythema General: positive: Fatigue - Other Other Information/Narrative: Patient did not sleep well last night. No n/v, tolerating clears well. +void, +flatus, no BM. +ambulation in and out of room. Using IS. No acute events overnight. Objective - Patient Data Reviewed Vital Signs: Yes Vital Signs: Vital Signs x48h Temp Pulse Resp BP Pulse Ox 09/29/22 04:04 36.6 C 68 16 116/56 L 99 09/29/22 00:00 36.9 C 74 18 105/59 L 96 Weight: Weight 09/27/22 09/28/22 09/29/22 23:59 23:59 23:59 Weight (kg) 81.647 kg Intake & Output: Intake and Output Totals x24h 09/27/22 09/28/22 09/29/22 23:59 23:59 23:59 Intake Total 7747.010 0559.000 Output Total 475 Balance 079.630 5075.000 - Lab Results Lab Results: 09/29/22 04:32 09/29/22 04:32 Other Lab Results: Lab Results x24hrs 09/29/22 09/29/22 09/29/22 Range/Units 04:32 04:32 04:32 WBC 12.6 H (4.8-10.8) x10^3/uL RBC 3.95 L (4.70-6.10) 10^6/uL Hgb 12.2 L (14.0-18.0) g/dL Hct 38.1 L (42.0-52.0) % MCV 96.5 H (80.0-94.0) fL MCH 30.9 (27.0-31.0) pg MCHC 32.0 (32.0-36.0) g/dL RDW 13.2 (12.0-15.0) % Plt Count 235 (130-450) 10^3/uL MPV 9.0 (7.4-11.4) fL Neut # (Auto) 10.1 H (1.5-6.6) 10^3/uL Lymph # (Auto) 1.3 L (1.5-3.5) 10^3/uL [place] # (Auto) 1.2 H (0.0-1.0) 10^3/uL Eos # (Auto) 0.0 (0.0-0.7) 10^3/uL Baso # (Auto) 0.0 (0.0-0.1) 10^3/uL Absolute Nucleated RBC 0.00 x10^3/uL Nucleated RBC % 0.0 /100WBC Sodium 133 L (135-145) mmol/L Potassium 4.4 (3.5-5.0) mmol/L Chloride 103 (101-111) mmol/L Carbon Dioxide 24 (21-32) mmol/L Anion Gap 6.0 (6-13) BUN 17 (6-20) mg/dL Creatinine 1.2 (0.6-1.2) mg/dL Estimated GFR (MDRD) 59 L (>89) Glucose 130 H (70-100) mg/dL Calcium 8.0 L (8.5-10.3) mg/dL Carcinoembryonic Ag 1.7 ng/mL - Current Medications Current Medications: Current Medications Generic Name Dose Route Start Last Admin Trade Name Melchor PRN Reason Stop Dose Admin Acetaminophen 650 mg 09/28/22 17:00 09/29/22 04:41 Acetaminophen 325 Mg Tablet PO 650 mg Q4HR CRISPIN Administration Gabapentin 100 mg 09/28/22 21:00 09/28/22 21:26 Gabapentin 100 Mg Capsule PO 100 mg HS CRISPIN Administration Hydromorphone HCl 0.5 mg 09/28/22 13:06 09/28/22 18:38 Hydromorphone 0.5 Mg/0.5 Ml Syringe IVP 0.5 mg Q2H PRN Administration Severe Pain (Level 7-10) Lactated Ringer's 1,000 mls @ 125 mls/hr 09/28/22 14:00 09/29/22 06:45 Lr IV 125 mls/hr .Q8H CRISPIN Administration Ibuprofen 600 mg 09/28/22 18:00 09/29/22 06:45 Ibuprofen 600 Mg Tablet PO 600 mg Q6HR CRISPIN Administration Levothyroxine Sodium 100 mcg 09/28/22 17:30 09/28/22 17:36 Levothyroxine 100 Mcg Tablet PO 100 mcg DAILY CRISPIN Administration Lisinopril 20 mg 09/28/22 17:30 09/28/22 17:36 Lisinopril 20 Mg Tablet PO 20 mg DAILY CRISPIN Administration Oxycodone HCl 5 mg 09/28/22 13:06 09/29/22 04:12 Oxycodone 5 Mg Tablet PO 5 mg Q4HR PRN Administration Moderate Pain (Level 4-6) - Physical Exam Wound/Incisions: positive: Healing well, Drainage (small amount of serosang drainage on midline dressing) General Appearance: positive: No acute distress, Alert Eyes Bilateral: positive: Normal inspection, PERRL ENT: positive: No signs of dehydration Neck: positive: Trachea midline Respiratory: positive: No respiratory distress Cardiovascular: positive: Regular rate & rhythm Abdomen: positive: No distention, Tenderness (appropriate for postop). negativ e: Guarding, Rebound Skin: positive: Color nml, No rash Extremities: positive: Non-tender, Full ROM Neurologic/Psychiatric: positive: Oriented x3 Impression/Plan - Problem List Problem List: 77 y/o M s/p lap assisted right hemicolectomy for right colon mass, POD#1. 1. right colon mass - await pathology - tolerating clears, passing flatus - incisions healing well 2. leukocytosis - likely multifactorial with stress response a contributing factor - patient to complete 24 hour of post op abx today - no sign of perforation in OR 3. BPH, HTN, hypothyroidism - home meds restarted Increase diet and activity today. If tolerating diet well, plan to d/c IVF. Will change Ibu dosing to get timing with tylenol closer. Home when tolerating diet, pain controlled. F/u in clinic in 2 weeks.
[2022-09-29] MEDS ORDERED: IBUPROFEN 600 MG TABLET PO SCH ×3 (08:00→09:00)
[2022-09-29] MEDS: IBUPROFEN 400 MG TABLET PO SCH ×4 (08:37→21:30)
[2022-09-29] MEDS: FAMOTIDINE 20 MG TABLET PO SCH (08:38)
[2022-09-29] MEDS: ENOXAPARIN 40 MG/0.4 ML SYRINGE SUBQ SCH (08:38)
[2022-09-29] MEDS ORDERED: MIN OIL/DIMETHICON/COCONUT OIL 92 GM TUBE TOP PRN (08:44)
[2022-09-29] MEDS: LEVOTHYROXINE 100 MCG TABLET PO SCH (08:55)
[2022-09-29] MEDS: lisinopriL 20 MG TABLET PO SCH (08:55)
[2022-09-29] MEDS: GABAPENTIN 100 MG CAPSULE PO SCH (21:29)
[2022-09-30] MEDS: ACETAMINOPHEN 325 MG TABLET PO SCH ×6 (01:03→21:06)
[2022-09-30] MEDS: IBUPROFEN 400 MG TABLET PO SCH ×6 (01:04→21:06)
--- NOTE | 2022-09-30 07:12 | PROVIDER PROGRESS NOTE ---
Subjective - General Admit Date: 09/28/22 Procedure Date: 09/28/22 Post Op Days: 2 Procedure Performed: lap assisted right hemicolectomy, umbilical hernia repair - Review of Systems Wound/Incisions: positive: Healing well, Drainage (small amount of serosang drainage on midline dressing) - Other Other Information/Narrative: Patient slept well for about four hours and then had a difficult going back to sleep after waking up around 0100 for vitals and meds. Tolerating full liquid diet without n/v. Pain controlled with PO meds. +void, +flatus, +ambulation. Objective - Patient Data Reviewed Vital Signs: Yes Vital Signs: Vital Signs x48h Temp Pulse Resp BP Pulse Ox 09/30/22 05:26 36.6 C 62 20 130/57 L 96 09/30/22 01:00 36.3 C L 57 L 20 117/61 95 Weight: Weight 09/28/22 09/29/22 09/30/22 23:59 23:59 23:59 Weight (kg) 81.647 kg Intake & Output: Intake and Output Totals x24h 09/28/22 09/29/22 09/30/22 23:59 23:59 23:59 Intake Total 8905.190 3961.600 500 Output Total 475 Balance 865.695 3760.600 500 - Lab Results Lab Results: 09/30/22 07:57 09/30/22 07:57 - Current Medications Current Medications: Current Medications Generic Name Dose Route Start Last Admin Trade Name Freq PRN Reason Stop Dose Admin Acetaminophen 650 mg 09/28/22 17:00 09/30/22 05:16 Acetaminophen 325 Mg Tablet PO 650 mg Q4HR CRISPIN Administration Enoxaparin Sodium 40 mg 09/29/22 09:00 09/29/22 08:38 Enoxaparin 40 Mg/0.4 Ml Syringe SUBQ 40 mg DAILY CRISPIN Administration Famotidine 20 mg 09/29/22 09:00 09/29/22 08:38 Famotidine 20 Mg Tablet PO 20 mg DAILY CRISPIN Administration Gabapentin 100 mg 09/28/22 21:00 09/29/22 21:29 Gabapentin 100 Mg Capsule PO 100 mg HS CRISPIN Administration Hydromorphone HCl 0.5 mg 09/28/22 13:06 09/28/22 18:38 Hydromorphone 0.5 Mg/0.5 Ml Syringe IVP 0.5 mg Q2H PRN Administration Severe Pain (Level 7-10) Ibuprofen 400 mg 09/29/22 09:00 09/30/22 05:16 Ibuprofen 400 Mg Tablet PO 400 mg Q4H CRISPIN Administration Levothyroxine Sodium 100 mcg 09/28/22 17:30 09/29/22 08:55 Levothyroxine 100 Mcg Tablet PO 100 mcg DAILY CRISPIN Administration Lisinopril 20 mg 09/28/22 17:30 09/29/22 08:55 Lisinopril 20 Mg Tablet PO 20 mg DAILY CRISPIN Administration Oxycodone HCl 5 mg 09/28/22 13:06 09/29/22 04:12 Oxycodone 5 Mg Tablet PO 5 mg Q4HR PRN Administration Moderate Pain (Level 4-6) - Physical Exam Wound/Incisions: positive: Dressing dry and intact General Appearance: positive: No acute distress, Alert Eyes Bilateral: positive: Normal inspection, PERRL, EOMI ENT: positive: No signs of dehydration Neck: positive: Trachea midline Respiratory: positive: No respiratory distress (on RA) Cardiovascular: positive: Regular rate & rhythm Abdomen: positive: No distention, Tenderness (appropriate incisional ttp). neg ative: Guarding, Rebound Extremities: positive: Non-tender Neurologic/Psychiatric: positive: Oriented x3 Impression/Plan - Problem List Problem List: 77 y/o M s/p lap assisted right hemicolectomy for right colon mass, POD#2. 1. right colon mass - await pathology - tolerating liquids, passing flatus, IVF stopped yesterday - incisions healing well 2. leukocytosis -periop abx complete. No fevers, f/u am lab 3. BPH, HTN, hypothyroidism - home meds restarted Increase diet and activity today. If tolerating diet well, possible discharge later today. Home when tolerating diet, pain controlled. Patient's daughter had several questions which were answered via email per patient request. F/u in clinic in 2 weeks. Appointment 10/15/22 at 0930.
[2022-09-30 08:02] LABS: HCT - HEMATOCRIT 37.8 % (42.0-52.0); HGB - HEMOGLOBIN 12.3 g/dL (14.0-18.0); MEAN CORPUSCULAR HEMOGLOBIN 30.9 pg (27.0-31.0); MEAN CORPUSCULAR HGB CONC 32.5 g/dL (32.0-36.0); MEAN PLATELET VOLUME 8.6 fL (7.4-11.4); RED BLOOD COUNT 3.98 10^6/uL (4.70-6.10); RED CELL DISTRIBUTION WIDTH 13.2 % (12.0-15.0); WHITE BLOOD COUNT 14.4 x10^3/uL (4.8-10.8)
[2022-09-30 08:11] LABS: CALCIUM 8.4 mg/dL (8.5-10.3); CREATININE 1.3 mg/dL (0.6-1.2); POTASSIUM 4.2 mmol/L (3.5-5.0)
[2022-09-30] MEDS: LEVOTHYROXINE 100 MCG TABLET PO SCH (08:57)
[2022-09-30] MEDS: lisinopriL 20 MG TABLET PO SCH (08:57)
[2022-09-30] MEDS: FAMOTIDINE 20 MG TABLET PO SCH (08:58)
[2022-09-30] MEDS: SENNA 8.6 MG TABLET PO SCH ×3 (08:58→21:07)
[2022-09-30] MEDS: ENOXAPARIN 40 MG/0.4 ML SYRINGE SUBQ SCH (08:58)
[2022-09-30] MEDS: DOCUSATE SODIUM 250 MG CAPSULE PO SCH (08:59)
[2022-09-30] MEDS: polyethylene glycoL 3350 17 GM PACKET PO SCH (09:00)
[2022-09-30] MEDS ORDERED: LACTATED RINGERS 500 ML IV ONE (09:44)
[2022-09-30 15:24] LABS: BASOPHILS % (AUTO) 0.3 %; EOSINOPHILS % (AUTO) 0.8 %; HCT - HEMATOCRIT 38.7 % (42.0-52.0); HGB - HEMOGLOBIN 12.3 g/dL (14.0-18.0); LYMPHOCYTES % (AUTO) 8.6 %; MEAN CORPUSCULAR HEMOGLOBIN 30.6 pg (27.0-31.0); MEAN CORPUSCULAR HGB CONC 31.8 g/dL (32.0-36.0); MEAN CORPUSCULAR VOLUME 96.3 fL (80.0-94.0); MONOCYTES % (AUTO) 10.6 %; NEUTROPHILS % (AUTO) 79.2 %; PLT - PLATELET COUNT 265 10^3/uL (130-450); RED BLOOD COUNT 4.02 10^6/uL (4.70-6.10); RED CELL DISTRIBUTION WIDTH 13.2 % (12.0-15.0)
[2022-09-30 15:27] LABS: WHITE BLOOD COUNT 14.7 x10^3/uL (4.8-10.8)
[2022-09-30 15:28] LABS: ABNORMAL LYMPHS % (MANUAL) 0 %
[2022-09-30 15:50] LABS: BAND NEUTROPHILS % (MANUAL) 3 %; DIFFERENTIAL COMMENT MANUAL DIFFERENTIAL; EOSINOPHILS # (MANUAL) 0.1 10^3/uL (0-0.7); LYMPHOCYTES % (MANUAL) 7 %; MONOCYTES # (MANUAL) 2.1 10^3/uL (0.0-1.0); NEUTROPHILS # (MANUAL) 11.5 10^3/uL (1.5-6.6); PLATELET ESTIMATE, MANUAL NORMAL (130-450,000) (NORMAL); PLATELET MORPHOLOGY NORMAL APPEARANCE (NORMAL); RBC MORPHOLOGY (MULTIPLE) NORMAL APPEARANCE (NORMAL)
[2022-09-30] MEDS: GABAPENTIN 100 MG CAPSULE PO SCH (21:06)
[2022-09-30] MEDS ORDERED: SODIUM CHLORIDE 0.9% 500 ML IV PRN (23:49)
[2022-10-01] MEDS: ACETAMINOPHEN 325 MG TABLET PO SCH ×4 (01:00→13:15)
[2022-10-01] MEDS: IBUPROFEN 400 MG TABLET PO SCH ×4 (01:00→13:15)
[2022-10-01] MEDS: SENNA 8.6 MG TABLET PO SCH (03:55)
[2022-10-01] MEDS: SODIUM CHLORIDE FLUSH 0.9% 10 ML SYRINGE IVP SCH ×2 (03:57→08:40)
[2022-10-01 05:37] LABS: BILIRUBIN,URINE NEGATIVE (NEGATIVE); GLUCOSE, URINE (UA) NEGATIVE (NEGATIVE); KETONES,URINE (UA) NEGATIVE (NEGATIVE); LEUKOCYTE ESTERASE, URINE NEGATIVE (NEGATIVE); NITRITE,URINE NEGATIVE (NEGATIVE); OCCULT BLOOD,URINE TRACE-INTA (NEGATIVE); PROTEIN,URINE NEGATIVE (NEGATIVE); UROBILINOGEN,URINE 0.2 (NORMAL) E.U./dL (NORMAL)
[2022-10-01 05:45] LABS: BACTERIA,URINE None Seen /HPF (None Seen); CLARITY,URINE CLEAR (CLEAR); RBC,URINE 0-5 /HPF (0-5); SQUAMOUS EPITHELIAL CELL,UR RARE Squamous (<= Few); WBC,URINE 0-3 /HPF (0-3)
[2022-10-01 06:06] LABS: BASOPHILS % (AUTO) 0.3 %; EOSINOPHILS # (AUTO) 0.1 10^3/uL (0.0-0.7); EOSINOPHILS % (AUTO) 1.1 %; HCT - HEMATOCRIT 39.9 % (42.0-52.0); HGB - HEMOGLOBIN 12.9 g/dL (14.0-18.0); LYMPHOCYTES # (AUTO) 1.4 10^3/uL (1.5-3.5); LYMPHOCYTES % (AUTO) 10.6 %; MEAN CORPUSCULAR HEMOGLOBIN 30.9 pg (27.0-31.0); MEAN CORPUSCULAR HGB CONC 32.3 g/dL (32.0-36.0); MEAN CORPUSCULAR VOLUME 95.5 fL (80.0-94.0); MEAN PLATELET VOLUME 9.8 fL (7.4-11.4); MONOCYTES # (AUTO) 1.4 10^3/uL (0.0-1.0); NEUTROPHILS # (AUTO) 9.9 10^3/uL (1.5-6.6); NEUTROPHILS % (AUTO) 75.3 %; PLT - PLATELET COUNT 297 10^3/uL (130-450); RED BLOOD COUNT 4.18 10^6/uL (4.70-6.10); RED CELL DISTRIBUTION WIDTH 13.3 % (12.0-15.0); WHITE BLOOD COUNT 13.1 x10^3/uL (4.8-10.8)
[2022-10-01 06:14] LABS: CALCIUM 8.8 mg/dL (8.5-10.3); CREATININE 1.3 mg/dL (0.6-1.2); POTASSIUM 3.6 mmol/L (3.5-5.0)
[2022-10-01] MEDS: lisinopriL 20 MG TABLET PO SCH (08:19)
[2022-10-01] MEDS: DOCUSATE SODIUM 250 MG CAPSULE PO SCH (08:19)
[2022-10-01] MEDS: FAMOTIDINE 20 MG TABLET PO SCH (08:19)
[2022-10-01] MEDS: LEVOTHYROXINE 100 MCG TABLET PO SCH (08:19)
[2022-10-01] MEDS: polyethylene glycoL 3350 17 GM PACKET PO SCH (08:19)
[2022-10-01] MEDS: ENOXAPARIN 40 MG/0.4 ML SYRINGE SUBQ SCH (08:21)
--- NOTE | 2022-10-01 08:55 | Discharge Plan ---
Discharge Plan Problem Reviewed?: Yes Disposition: Home, Self Care Condition: Good Prescriptions: polyethylene glycoL 3350(BULK) [Miralax] 17 gm PO DAILY #238 gm oxyCODONE [Roxicodone] 5 mg PO Q4H PRN #15 tablet PRN Reason: Pain Diet: Regular Activity Restrictions: Additional Comments (Do NOT lifting/pushing/pulling more than 20 lbs for 6 weeks) Shower Restrictions: Yes (ok to shower, no baths for two weeks) Driving Restrictions: Yes (do not drive while taking narcotic pain meds) Weight Bearing: Full Weight Instruction Topics: Colorectal Surg Recovery, Resections Types Colon No Smoking: If you smoke, Please STOP! Call for help. Follow-up with: Svetlana Hernandez MD [Provider Admit Priv/Credential] - 10/15/22 9:15 am (on 10/15/22 at 0915)
--- NOTE | 2022-10-01 10:29 | XRAY Report ---
PROCEDURE: Chest 2 View X-Ray INDICATIONS: Chest pain TECHNIQUE: 2 views of the chest were acquired. COMPARISON: None. FINDINGS: Surgical changes and devices: None. Lungs and pleura: No pleural effusions or pneumothorax. Lungs are clear. Mediastinum: Mediastinal contours appear normal. Heart size is normal. Lucency is noted below the hemidiaphragms. Bones and chest wall: No suspicious bony lesions. Overlying soft tissues appear unremarkable. IMPRESSION: Lucencies below the hemidiaphragms suggestive of free air. The above findings are concordant with preliminary report. Reviewed by: Antonietta Castillo MD on 10/01/2022 10:27 AM PDT Approved by: Antonietta Castillo MD on 10/01/2022 10:27 AM PDT Station ID: [id number]
[2022-10-01 13:07] VITALS: BP 111/53
--- NOTE | 2022-10-01 14:39 | DISCHARGE SUMMARY ---
Discharge Summary Admit Date: 09/28/22 Discharge Date: 10/01/22 Discharging Provider: Dr. Alba Hernandez Primary Care Provider: Dr. Seals Code Status: Attempt Resuscitation Condition at Discharge: Good Discharge Disposition: 01 Home, Self Care - DIAGNOSES Admission Diagnoses: acute appendicitis Discharge Diagnoses with Status of Each Condition: complicated acute appendicitis, resolved leukocytosis, improving chest pain, resolved - HPI History of Present Illness: This is a very pleasant 77-year-old gentleman who reports he has started having some vague abdominal pain about 6 days BUNG REMOVER after eating some "old feliz". Initially, the patient had vague abdominal pain about the umbilicus that throughout the day migrated to the right lower quadrant. He continued to have vague, mild pain for several days. Last night, his pain acutely worsened, prompting him to come to the emergency department. He denies any nausea, vomiting, constipation, or diarrhea. His appetite has remained relatively normal over the last several days. He denies any blood in his stool or melanotic stool. He has never had similar pain in the past. He states he has had colonoscopies in the past and his most recent was about 5 to 6 years ago. He has never had any colon polyps. He has no family history of colon cancer. He has no personal history of previous abdominal surgery.Last p.o. intake was the evening BUNG REMOVER. - CONSULTS | PROCEDURES Consultations: none Procedures: lap assisted right hemicolectomy by Dr. Hernandez - HOSPITAL COURSE Hospital Course: Patient was taken to the operating room. At that time, his appendix was densely adherent to a very firm mass in the cecum. Due to concern for an underlying malignant process, I proceeded with a lap assisted right hemicolectomy. Postoperatively, the patient was transferred to the floor. He did quite well. He was able to tolerate advancement of his diet over the first 2 days. He had a slightly elevated white blood cell count so I elected to keep him for 1 additional day. On the morning of stop day #3, the date of discharge, the shantal ieelicia had some sharp right-sided chest pain. EKG was within normal limits, troponins were negative, and chest x-ray demonstrated a small amount of free air consistent with his postoperative course. I suspect that his pain was related to referred pain from the small amount of free air. His pain resolved without issue. He did not ever become tachycardic. His white blood cell count was trending down at the time of discharge. He is tolerating a regular diet and his pain is controlled on oral pain medication. His pathology came back on the date of discharge as inflammatory changes in the cecum. I discussed these findings with the patient and his daughter who are both very relieved. He is appropriate for discharge to home today. He will follow-up with me in clinic in 2 weeks to have his emil removed. - ALLERGIES Allergies/Adverse Reactions: Allergies Allergy/AdvReac Type Severity Reaction Status Date / Time Sulfa (Sulfonamide Allergy Severe Unknown Verified 09/28/22 08:18 Antibiotics) erythromycin base Allergy Unknown Verified 09/28/22 01:38 - MEDICATIONS Home Medications: Ambulatory Orders Medication Instructions Recorded Confirmed Levothyroxine [Synthroid] 100 mcg PO DAILY 01/24/17 09/28/22 lisinopriL [Lisinopril] 20 tab PO DAILY 01/24/17 09/28/22 Gabapentin [Neurontin] 100 mg PO HS 09/28/22 09/28/22 oxyCODONE [Roxicodone] 5 mg PO Q4H PRN #15 tablet 09/28/22 polyethylene glycoL 3350(BULK) 17 gm PO DAILY #238 gm 09/28/22 [Miralax] - PHYSICAL EXAM AT DISCHARGE General Appearance: positive: No acute distress, Alert Eyes Bilateral: positive: Normal inspection, EOMI ENT: positive: No signs of dehydration Neck: positive: Trachea midline Respiratory: positive: Chest non-tender, No respiratory distress, Breath sounds nml Cardiovascular: positive: Regular rate & rhythm, No murmur Peripheral Pulses: positive: 2+ Abdomen: positive: No distention, Tenderness (Appropriate, postoperative). negative: Guarding, Rebound Skin: positive: Color nml, No rash Extremities: positive: Non-tender, Full ROM Neurologic/Psychiatric: positive: Oriented x3 - LABS Result Diagrams: 10/01/22 05:00 10/01/22 05:00 - DIAGNOSTIC IMAGING Diagnostic Imaging Results: Final report reviewed Diagnostic Imaging Results Comments: I personally reviewed the images and report from the patient's chest x-ray this morning. I believe the small amount of free air is appropriate for his postoperative course. - FOLLOW UP Follow Up: Dr. Hernandez in 2 weeks. - TIME SPENT Time Spent in Discharge (Minutes): 52
== END 2022-10-01 13:45 | disposition home or self-care (01) | DRG 373 ==
LOC: ED 01:33 → SDS 07:15 → MS2 13:06
PROVIDERS: ADMIT Surgery; ATTEND Surgery
PROC: 0DTF0ZZ Resection of Right Large Intestine, Open Approach (ICD-10-PCS; principal; 2022-09-28 09:15)
DX: K35.30 Acute appendicitis with localized peritonitis, without perforation or gangrene (principal); K35.32 Acute appendicitis with perforation, localized peritonitis, and gangrene, without abscess; R07.89 Other chest pain; I10 Essential (primary) hypertension; E78.00 Pure hypercholesterolemia, unspecified; N40.0 Benign prostatic hyperplasia without lower urinary tract symptoms; E03.9 Hypothyroidism, unspecified; M19.90 Unspecified osteoarthritis, unspecified site; G47.33 Obstructive sleep apnea (adult) (pediatric); K42.9 Umbilical hernia without obstruction or gangrene; K63.9 Disease of intestine, unspecified; Z87.891 Personal history of nicotine dependence
CPT/HCPCS: 36415; 44140; 71046; 74177; 80048; 80053; 81001; 81003; 82378; 83690; 84484; 85025; 93005; 96374; 99284; 99285; A6250; A9270; J0131; J1170; J1650; J7120; Q9967; 85027; 87086

== ENCOUNTER 2022-12-22 08:46 | Day surgery (SDC) | payer MEDICARE, OTHER ==
[2022-12-22] MEDS ORDERED: LACTATED RINGERS 1,000 ML IV ONE (09:13)
--- NOTE | 2022-12-22 09:30 | ANESTHESIA ---
Pre-Anesthesia VS, & Labs - Diagnosis screening - Procedure colonoscopy Vital Signs: Temp Pulse Resp BP Pulse Ox O2 Flow Rate 36.4 C L 74 18 141/78 H 100 12/22/22 08:58 12/22/22 08:58 12/22/22 08:58 12/22/22 08:58 12/22/22 08:58 Height: 5 ft 11 in Weight (kg): 80 kg Body Mass Index: 24.5 BMI Classification: Normal - NPO >8 hours Home Medications and Allergies Levothyroxine [Synthroid] 100 mcg PO DAILY 01/24/17 lisinopriL [Lisinopril] 20 tab PO DAILY 01/24/17 Gabapentin [Neurontin] 100 mg PO HS 09/28/22 Allergies/Adverse Reactions: Allergies Allergy/AdvReac Type Severity Reaction Status Date / Time Sulfa (Sulfonamide Allergy Severe Unknown Verified 09/28/22 08:18 Antibiotics) erythromycin base Allergy Unknown Verified 09/28/22 01:38 Anes History & Medical History - Anesthetic History Anesthesia Complications: reports: No previous complications Family history of Anesthesia Complications: Denies Family history of Malignant Hyperthermia: Denies - Medical History Cardiovascular: reports: Hypertension, High cholesterol Pulmonary: reports: Sleep apnea, CPAP use Gastrointestinal: reports: None Urinary: reports: Benign prostate hypertrophy, Kidney stones, Other Musculoskeletal: reports: Osteoarthritis Endocrine/Autoimmune: reports: HyPOthyroidism Blood Disorders: reports: None Smoking Status: Never smoker - Surgical History General: reports: Appendectomy, Colonoscopy Urologic: reports: Ureterolithotomy (stones), Prostatic surgery Orthopedic: reports: Shoulder arthroplasty Dermatologic: reports: Skin cancer surgery Exam General: Alert, Oriented x3, Cooperative Dental: WNL Mouth Openin Fingerbreadth Neck Mobility: Normal Mallampati classification: II Thyromental Distance: 4-6 cm Respiratory: Lungs clear Cardiovascular: Regular rate Plan Anesthesia Type: General Consent for Procedure(s) Verified and Reviewed: Yes Code Status: Attempt Resuscitation ASA classification: 2-Mild systemic disease Is this case an emergency?: No
[2022-12-22] MEDS ORDERED: PROPOFOL 500 MG/50 ML 500 MG/50 ML VIAL ONE (10:25)
[2022-12-22] MEDS ORDERED: LACTATED RINGERS 300 ML IV ONE (11:24)
[2022-12-22 11:54] VITALS: BP 131/77
[2022-12-22] MEDS ORDERED: SIMETHICONE 40 MG/0.6 ML 30 ML BOTTLE ONE (12:19)
--- NOTE | 2022-12-22 14:46 | ANESTHESIA POST OP EVALUATION ---
Anesthesia Post Eval - Post Anesthesia Eval Vitals: Last Vital Signs Temp 36.5 C 12/22/22 11:44 Pulse 66 12/22/22 11:49 Resp 16 12/22/22 11:49 BP 131/77 H 12/22/22 11:49 Pulse Ox 95 12/22/22 11:49 O2 Flow Rate CV Function Including HR & BP: Stable Pain Control: Satisfactory Nausea & Vomiting: Negative Mental Status: Baseline Respiratory Status: Airway Patent Hydration Status: Satisfactory Anesthesia Complications: None
== END 2022-12-22 08:47 | disposition home or self-care (01) ==
LOC: SDS 08:46
PROVIDERS: ATTEND Surgery
PROC: 0DBL8ZZ Excision of Transverse Colon, Via Natural or Artificial Opening Endoscopic (ICD-10-PCS; principal; 2022-12-22 10:15)
DX: Z12.11 Encounter for screening for malignant neoplasm of colon (principal); D12.3 Benign neoplasm of transverse colon; Z98.0 Intestinal bypass and anastomosis status; Z90.49 Acquired absence of other specified parts of digestive tract
CPT/HCPCS: 45380; A9270; J7120

== ENCOUNTER 2023-02-15 14:17 | Outpatient (CLI) | payer MEDICARE, OTHER ==
--- NOTE | 2023-02-15 10:40 | SLEEP CARE CONSULTATION ---
Information from patient questionnaire entered by Sirisha Hodgson. I have reviewed and concur with the information entered by Sirisha Hodgson. This document represents the service I personally performed and the decisions made by me, Gloria Lyles MD, [facility]. History of Present Illness Service Date and Time: 02/15/2023 1000 Reason for follow up: annual (LAST SEEN 02/2022) Prior sleep studies: No Type of Sleep Study: Polysomnography (F/U POLY, 11/06/2021 [facility],) HPI additional information: Mr. Charles was diagnosed to have moderate obstructive sleep apnea-hypopnea syndrome and was seen today via video telemedicine for an annual follow up of CPAP therapy. The patient recently acquired a new ResMed AirSense 11 from [employer] and was fitted with P10 nasal pillows. He uses the device nightly and all through the night. The compliance report shows that he uses the device 175 nights out of the past 180 nights, averaging 8 hours a night. He complains of mouth dryness. He thinks that the pressure of 5 - 12 cmH2O is too low at first. On the CPAP therapy he notices improvement in his sleep quality, and that he wakes up feeling fresher in the morning and more awake/alert during the day. E pworth Sleepiness Scale score is 3. The average residual AHI is 4.2; and average air leak is 6.0 L/minute. Most of the residual respiratory events were mostly central apneas. The 90th percentile pressure is 7.8 cmH2O. Sleep Study - Results Type of Sleep Study: Polysomnography (F/U POLY, 11/06/2021 [facility],) Prior sleep studies: No CPAP Compliance Data - Data Reviewed with Patient Average duration of nightly device use: 7HRS 38MIN Compliance rate %: 96 (08/05/22-01/31/23) Current pressure setting (cmH2O): 6-12 Average residual AHI: 4.2 Subjective Initial [place] Sleepiness Scale score: 5 (in 2019) Allergies and Home Medications Allergy and home medication list: Allergies Sulfa (Sulfonamide Antibiotics) Allergy (Severe, Verified 02/12/23 08:39) Unknown Merritt-Kolton syndrome erythromycin base Allergy (Verified 02/12/23 08:39) Unknown Review of Systems Review of systems same as previous: Yes Physical Exam Vital signs obtained and entered by: SIRISHA Luis MA Height: 5 ft 11 in Impression and Plan IMPRESSION: 1. Obstructive Sleep Apnea-Hypopnea Syndrome, moderate, with the patient continuing to do well on nasal CPAP therapy. He has excellent compliance and significant clinical benefits. The current pressure appears effective and comfortable. No adjustment is necessary today. PLAN: 1. Leave autoCPAP at 5 - 12 cm H2O via the modem. 2. Raise the humidity for mouth dryness. 3. Return in one year for follow up or earlier if there is any problem with the treatment. Follow up with Sleep Care in: 1 year Visit Type: In Office Time Spent with Patient (minutes): 15 Provider Statement: I spent 100% of the Face to Face Visit with the patient with greater than 50% spent counseling the patient and coordination of care.
== END 2023-02-15 14:18 | disposition home or self-care (01) ==
LOC: SC 14:17
PROVIDERS: ATTEND Internal Medicine Pulmonary Disease
DX: G47.33 Obstructive sleep apnea (adult) (pediatric) (principal)

== ENCOUNTER 2023-11-08 02:13 | Emergency (ER) | payer MEDICARE, OTHER ==
[2023-11-08 02:23] VITALS: O2SAT 94
[2023-11-08] MEDS: DEXAMETHASONE 10 MG/ML VIAL IVP STA (02:46)
[2023-11-08] MEDS: SODIUM CHLORIDE 0.9% 1,000 ML IV STA ×2 (02:47→04:00)
[2023-11-08] MEDS ORDERED: ACETAMINOPHEN 1,000 MG/100 ML 1,000 MG/100 ML BAG IV ONE (02:50)
[2023-11-08] MEDS: ACETAMINOPHEN 1,000 MG/100 ML 1,000 MG/100 ML BAG IV ONE (02:51)
[2023-11-08 02:54] LABS: BASOPHILS % (AUTO) 0.2 %; HCT - HEMATOCRIT 44.7 % (42.0-52.0); HGB - HEMOGLOBIN 14.2 g/dL (14.0-18.0); LYMPHOCYTES # (AUTO) 0.4 10^3/uL (1.5-3.5); LYMPHOCYTES % (AUTO) 2.5 %; MEAN CORPUSCULAR HGB CONC 31.8 g/dL (32.0-36.0); MEAN CORPUSCULAR VOLUME 94.5 fL (80.0-94.0); MEAN PLATELET VOLUME 9.2 fL (7.4-11.4); MONOCYTES # (AUTO) 0.6 10^3/uL (0.0-1.0); MONOCYTES % (AUTO) 3.8 %; NEUTROPHILS # (AUTO) 14.3 10^3/uL (1.5-6.6); PLT - PLATELET COUNT 285 10^3/uL (130-450); RED BLOOD COUNT 4.73 10^6/uL (4.70-6.10); WHITE BLOOD COUNT 15.4 x10^3/uL (4.8-10.8)
[2023-11-08] MEDS: RACEPINEPHRINE 2.25% NEB INH STA (02:54)
[2023-11-08] MEDS: SODIUM CHLORIDE FOR INHALATION 5 ML NEB INH STA (02:54)
[2023-11-08] MEDS ORDERED: iohexoL-300 100 ML VIAL ONE (02:55)
[2023-11-08] MEDS: AMPICILLIN/SULBACTAM 3 GM in SODIUM CHLORIDE 0.9% MINIBAG 100 ML IV STA (02:55)
[2023-11-08 03:11] LABS: RAPID STREP SCREEN Negative (Negative)
[2023-11-08 03:16] LABS: ALBUMIN/GLOBULIN RATIO 1.5 (1.0-2.2); BILIRUBIN,TOTAL 1.3 mg/dL (0.2-1.0); CALCIUM 9.4 mg/dL (8.5-10.3); CREATININE 1.1 mg/dL (0.6-1.3); POTASSIUM 4.1 mmol/L (3.5-4.5); TOTAL PROTEIN 6.6 g/dL (6.4-8.9)
[2023-11-08 03:18] LABS: VBG BASE EXCESS -0.8 mmol/L (-2 - +2); VBG HCO3 22.8 mmol/L (23-28); VBG OXYGEN SATURATION 90.9 % (60-80); VBG PCO2 34.9 mmHg (41-51); VBG PH 7.433 (7.31-7.41); VBG PO2 51.7 mmHg (25-47); VBG TOTAL CO2 23.9 mmol/L (24-29)
[2023-11-08] MEDS: iohexoL-300 100 ML VIAL IVP ONE (03:26)
[2023-11-08 03:37] LABS: INR 1.3 (0.8-1.2); PT - PROTHROMBIN TIME 14.5 secs (9.9-12.6)
--- NOTE | 2023-11-08 03:43 | ED Physician Documentation ---
History of Present Illness - Stated complaint Stated Complaint: SORE THROAT/FEVER/GEN. WEAKNESS - Chief complaint Chief Complaint: Fever - Additonal information Additional information: Patient 78-year-old male presenting to the emergency department chief complaint sore throat and shortness of breath. Accompanied by is present at bedside. Recently returned from travel [place]. Reports for 3 days has had intermittent fevers, cough, congestion, severe sore throat, generalized weakness. Reports that his voice sounds muffled to him and that he has been coping coughing up copious amounts of phlegm. Review of Systems Constitutional: denies: Fever Eyes: denies: Loss of vision Ears: denies: Loss of hearing Nose: denies: Rhinorrhea / runny nose Throat: reports: Sore throat, Other (Muffled voice) Cardiac: denies: Chest pain / pressure Respiratory: reports: Dyspnea, Cough GI: denies: Abdominal Pain, Nausea, Vomiting : denies: Dysuria PD PAST MEDICAL HISTORY - Past Medical History Past Medical History: Yes Cardiovascular: Hypertension, High cholesterol Respiratory: Sleep apnea, CPAP use Endocrine/Autoimmune: HyPOthyroidism GI: None : Benign prostate hypertrophy, Kidney stones, Other HEENT: None Psych: None Musculoskeletal: Osteoarthritis - Past Surgical History Past Surgical History: Yes General: Appendectomy, Colonoscopy Ortho: Shoulder arthroplasty Derm: Skin cancer surgery - Present Medications Home Medications: Ambulatory Orders Medication Instructions Recorded Confirmed Levothyroxine [Synthroid] 100 mcg PO DAILY 01/24/17 11/08/23 lisinopriL [Lisinopril] 20 tab PO DAILY 01/24/17 11/08/23 Azithromycin [Zithromax] 0 mg PO DAILY #6 tablet 11/08/23 Dextromethorphan/Benzocaine 1 each PO Q6HR #20 lozenge 11/08/23 [Cepacol Sore Throat-Cough See] HYDROcod/ACETAM 5/325 [[place] 5/325] 1 - 2 ea PO Q6H PRN #14 tablet 11/08/23 Ondansetron Odt [Zofran] 4 mg TL Q6H PRN #10 tablet 11/08/23 - Allergies Allergies/Adverse Reactions: Allergies Allergy/AdvReac Type Severity Reaction Status Date / Time Sulfa (Sulfonamide Allergy Severe Unknown Verified 11/08/23 02:23 Antibiotics) erythromycin base Allergy Unknown Verified 11/08/23 02:23 - Social History Does the pt smoke?: No Smoking Status: Never smoker Does the pt drink ETOH?: No Does the pt have substance abuse?: No - Immunizations Immunizations are current?: Yes - POLST Patient has POLST: No PD ED PE NORMAL - Vitals Vital signs reviewed: Yes (Febrile, tachycardic) - General General: Alert and oriented X 3, Other (Patient ill-appearing) - HEENT HEENT: Atraumatic, PERRL, EOMI, Ears normal, Moist mucous membranes, Other (Mallampati 4. No obvious asymmetry in the posterior oropharynx. No palpable tender masses in the submental or jugulodigastric region. The trachea has norm al mobility.) - Neck Neck: No JVD - Cardiac Cardiac: RRR, No murmur - Respiratory Respiratory: No respiratory distress - Abdomen Abdomen: Normal bowel sounds - Male Male : Deferred - Rectal Rectal: Deferred - Back Back: No CVA TTP - Derm Derm: Normal color - Extremities Extremities: No deformity - Neuro Neuro: Alert and oriented X 3, wall steamer 2-12 intact, No motor deficit, Normal speech Results - Vitals Vitals: Vital Signs - 24 hr 11/08/23 11/08/23 11/08/23 02:15 02:55 03:36 Temperature 39.2 C H 37.4 C Heart Rate 126 H 115 H 110 H Respiratory 18 16 18 Rate Blood Pressure 118/59 L 162/73 H O2 Saturation 94 94 11/08/23 11/08/23 11/08/23 04:12 04:33 05:32 Temperature 38.1 C H 37.2 C 37.0 C Heart Rate 110 H 106 H 98 Respiratory 20 24 20 Rate Blood Pressure 118/70 121/72 127/78 O2 Saturation 94 94 Oxygen O2 Source Room air - EKG (time done) 0246 EKG releavant findings:: EKG personally interpreted by author of this note. Relevant findings are: Sinus rhythm with rate 115 bpm. Normal axis. Normal OH, QRS, QTc intervals. No ST segment elevations. Nonspecific ST-T wave abnormalities noted in the precordial leads. - Labs Labs: Laboratory Tests 11/08/23 11/08/23 11/08/23 02:35 02:35 02:35 WBC 15.4 H RBC 4.73 Hgb 14.2 Hct 44.7 MCV 94.5 H MCH 30.0 MCHC 31.8 L RDW 14.0 Plt Count 285 MPV 9.2 Neut # (Auto) 14.3 H Lymph # (Auto) 0.4 L [place] # (Auto) 0.6 Eos # (Auto) 0.0 Baso # (Auto) 0.0 Absolute Nucleated RBC 0.00 Nucleated RBC % 0.0 PT INR VBG pH VBG pCO2 VBG pO2 VBG HCO3 VBG Total CO2 VBG O2 Saturation VBG Base Excess Sodium 134 L Potassium 4.1 Chloride 102 Carbon Dioxide 24 Anion Gap 8.0 BUN 18 Creatinine 1.1 Estimated GFR (MDRD) 65 L Glucose 114 H Lactic Acid Calcium 9.4 Total Bilirubin 1.3 H AST 22 ALT 27 Alkaline Phosphatase 58 Total Protein 6.6 Albumin 4.0 Globulin 2.6 Albumin/Globulin Ratio 1.5 Lipase 22 Urine Color Urine Clarity Urine pH Ur Specific [place] Urine Protein Urine Glucose (UA) Urine Ketones Urine Occult Blood Urine Nitrite Urine Bilirubin Urine Urobilinogen Ur Leukocyte Esterase Ur Microscopic Review Urine Culture Comments Nasal Adenovirus (PCR) Nasal B. parapertussis DNA (PCR) Nasal Coronavir 229E PCR Nasal Coronavir HKU1 PCR Nasal Coronavir NL63 PCR Nasal Coronavir OC43 PCR Nasal Enterovir/Rhinovir PCR Nasal Influenza B PCR Nasal Influenza A PCR Nasal Parainfluen 1 PCR Nasal Parainfluen 2 PCR Nasal Parainfluen 3 PCR Nasal Parainfluen 4 PCR Nasal RSV (PCR) Nasal B.pertussis DNA PCR Nasal C.pneumoniae (PCR) Enrique Human Metapneumo PCR Nasal M.pneumoniae (PCR) Nasal SARS-CoV-2 (PCR) Group A Strep Rapid Negative 11/08/23 11/08/23 11/08/23 02:35 02:35 03:02 WBC RBC Hgb Hct MCV MCH MCHC RDW Plt Count MPV Neut # (Auto) Lymph # (Auto) [place] # (Auto) Eos # (Auto) Baso # (Auto) Absolute Nucleated RBC Nucleated RBC % PT 14.5 H INR 1.3 H VBG pH VBG pCO2 VBG pO2 VBG HCO3 VBG Total CO2 VBG O2 Saturation VBG Base Excess Sodium Potassium Chloride Carbon Dioxide Anion Gap BUN Creatinine Estimated GFR (MDRD) Glucose Lactic Acid 0.8 Calcium Total Bilirubin AST ALT Alkaline Phosphatase Total Protein Albumin Globulin Albumin/Globulin Ratio Lipase Urine Color Urine Clarity Urine pH Ur Specific [place] Urine Protein Urine Glucose (UA) Urine Ketones Urine Occult Blood Urine Nitrite Urine Bilirubin Urine Urobilinogen Ur Leukocyte Esterase Ur Microscopic Review Urine Culture Comments Nasal Adenovirus (PCR) NOT DETECTED Nasal B. parapertussis DNA (PCR) NOT DETECTED Nasal Coronavir 229E PCR NOT DETECTED Nasal Coronavir HKU1 PCR NOT DETECTED Nasal Coronavir NL63 PCR NOT DETECTED Nasal Coronavir OC43 PCR NOT DETECTED Nasal Enterovir/Rhinovir PCR NOT DETECTED Nasal Influenza B PCR NOT DETECTED Nasal Influenza A PCR NOT DETECTED Nasal Parainfluen 1 PCR NOT DETECTED Nasal Parainfluen 2 PCR NOT DETECTED Nasal Parainfluen 3 PCR NOT DETECTED Nasal Parainfluen 4 PCR NOT DETECTED Nasal RSV (PCR) NOT DETECTED Nasal B.pertussis DNA PCR NOT DETECTED Nasal C.pneumoniae (PCR) NOT DETECTED Enrique Human Metapneumo PCR NOT DETECTED Nasal M.pneumoniae (PCR) NOT DETECTED Nasal SARS-CoV-2 (PCR) NOT DETECTED Group A Strep Rapid 11/08/23 11/08/23 03:02 04:18 WBC RBC Hgb Hct MCV MCH MCHC RDW Plt Count MPV Neut # (Auto) Lymph # (Auto) [place] # (Auto) Eos # (Auto) Baso # (Auto) Absolute Nucleated RBC Nucleated RBC % PT INR VBG pH 7.433 H VBG pCO2 34.9 L VBG pO2 51.7 H VBG HCO3 22.8 L VBG Total CO2 23.9 L VBG O2 Saturation 90.9 H VBG Base Excess -0.8 Sodium Potassium Chloride Carbon Dioxide Anion Gap BUN Creatinine Estimated GFR (MDRD) Glucose Lactic Acid Calcium Total Bilirubin AST ALT Alkaline Phosphatase Total Protein Albumin Globulin Albumin/Globulin Ratio Lipase Urine Color YELLOW Urine Clarity CLEAR Urine pH 7.0 Ur Specific [place] <=1.005 Urine Protein NEGATIVE Urine Glucose (UA) NEGATIVE Urine Ketones TRACE Urine Occult Blood NEGATIVE Urine Nitrite NEGATIVE Urine Bilirubin NEGATIVE Urine Urobilinogen 0.2 (NORMAL) Ur Leukocyte Esterase NEGATIVE Ur Microscopic Review NOT INDICATED Urine Culture Comments NOT INDICATED Nasal Adenovirus (PCR) Nasal B. parapertussis DNA (PCR) Nasal Coronavir 229E PCR Nasal Coronavir HKU1 PCR Nasal Coronavir NL63 PCR Nasal Coronavir OC43 PCR Nasal Enterovir/Rhinovir PCR Nasal Influenza B PCR Nasal Influenza A PCR Nasal Parainfluen 1 PCR Nasal Parainfluen 2 PCR Nasal Parainfluen 3 PCR Nasal Parainfluen 4 PCR Nasal RSV (PCR) Nasal B.pertussis DNA PCR Nasal C.pneumoniae (PCR) Enrique Human Metapneumo PCR Nasal M.pneumoniae (PCR) Nasal SARS-CoV-2 (PCR) Group A Strep Rapid PD Medical Decision Making - ED course Complexity details: reviewed results, re-evaluated patient, considered differential ED course: Patient 78-year-old male presenting to the emergency department with fever, sore throat, difficulty breathing. Initially arrived with report of muffled voice and feelings of swelling in the posterior oropharynx. No obvious masses or indications of peritonsillar abscess, Wilbur's angina or retropharyngeal abscess noted on physical exam. Given patient's fever and tachycardia sepsis protocol was initiated. Additionally given his presenting symptoms he was given 3 g Unasyn as well as 10 mg Decadron and racemic epinephrine. His labs demonstrate a significant leukocytosis. He was sent for stat CT imaging of the neck which demonstrated no indications deep space neck infection or upper airway compromise but did show airspace disease in the upper lung silva. Given the addition of likely respiratory pathogen did order for azithromycin in addition to his previously received Unasyn. His strep pharyngitis swab is negative. On reevaluation patient found to be resting much more comfortably. Reports significant improvement in his sore throat. Continues to have a very low level fever and tachycardia. Initial plan was for hospitalization at this facility for sepsis secondary to pneumonia however his fever resolved as did his tachycardia. He was monitored for several hours in the emergency department and ultimately requested discharge home. Discussed risks and benefits of discharge home versus continued treatment in the hospital including risk for worsening illness, loss opportunity to treat, .Demonstrated decisional capacity. He verbalized understanding of these things. Was discharged with ongoing medication for community-acquired pneumonia as well as medication for nausea, pain. He was given explicit return precautions prior to discharge. Departure - Departure Disposition: 01 Home, Self Care Clinical Impression: Acute pharyngitis Qualifiers: Pharyngitis/tonsillitis etiology: unspecified etiology Qualified Code(s): J02.9 - Acute pharyngitis, unspecified PNA (pneumonia) Qualifiers: Aspiration pneumonia type: unspecified Laterality: left Lung location: upper lobe of lung Sepsis Qualifiers: Sepsis type: sepsis due to unspecified organism Sepsis acute organ dysfunction status: without acute organ dysfunction Qualified Code(s): A41.9 - Sepsis, unspecified organism Prescriptions: Dextromethorphan/Benzocaine [Cepacol Sore Throat-Cough See] 1 each PO Q6HR #20 lozenge HYDROcod/ACETAM 5/325 [[place] 5/325] 1 - 2 ea PO Q6H PRN #14 tablet PRN Reason: Pain Azithromycin [Zithromax] 0 mg PO DAILY #6 tablet Ondansetron Odt [Zofran] 4 mg TL Q6H PRN #10 tablet PRN Reason: Nausea / Vomiting Comments: Thank you for allowing us to care for you today at [facility]. Prescription sent to [facility] in [place] Today in the emergency department you were evaluated for any possible dangerous or life-threatening medical emergency. Very glad that you are feeling better. The CT scan today did not show any dangerous soft tissue infection of the neck. It did show some indications pneumonia. You are given IV antibiotics, steroids here in the emergency department. I will be writing a course of oral antibiotic to begin taking at home as well as some throat lozenges and medications for pain or nausea. Please use these only as directed. Please follow-up with your primary care doctor soon as possible concerning your ER visit. Again if it anytime you develop any new or worsening symptoms please not hesi booker to return. Forms: PCP List Discharge Date/Time: 11/08/23 05:34
[2023-11-08 04:15] LABS: CORONAVIRUS 229E-RESP PCR NOT DETECTED; CORONAVIRUS HKU1-RESP PCR NOT DETECTED; CORONAVIRUS NL63-RESP PCR NOT DETECTED; CORONAVIRUS OC43-RESP PCR NOT DETECTED; HUMAN METAPNEUMOVIRUS NOT DETECTED; INFLUENZA A- RESP PCR PANEL NOT DETECTED; RHINOVIRUS/ENTEROVIRUS NOT DETECTED; SARS-CoV-2 -RESP PCR PANEL NOT DETECTED
[2023-11-08 04:16] LABS: B. PARAPERTUSSIS- RESP PCR PAN NOT DETECTED; B. PERTUSSIS- RESP PCR PANEL NOT DETECTED; C. PNEUMONIAE- RESP PCR PANEL NOT DETECTED; INFLUENZA B - RESP PCR PANEL NOT DETECTED; M. PNEUMONIAE- RESP PCR PANEL NOT DETECTED; PARAINFLUENZA VIRUS 1 NOT DETECTED; PARAINFLUENZA VIRUS 2 NOT DETECTED; PARAINFLUENZA VIRUS 3 NOT DETECTED; PARAINFLUENZA VIRUS 4 NOT DETECTED; RSV- RESP PCR PANEL NOT DETECTED
[2023-11-08 04:40] LABS: BILIRUBIN,URINE NEGATIVE (NEGATIVE); GLUCOSE, URINE (UA) NEGATIVE (NEGATIVE); KETONES,URINE (UA) TRACE mg/dL (NEGATIVE); LEUKOCYTE ESTERASE, URINE NEGATIVE (NEGATIVE); NITRITE,URINE NEGATIVE (NEGATIVE); OCCULT BLOOD,URINE NEGATIVE (NEGATIVE); PROTEIN,URINE NEGATIVE (NEGATIVE); UROBILINOGEN,URINE 0.2 (NORMAL) E.U./dL (NORMAL)
[2023-11-08 05:00] LABS: CLARITY,URINE CLEAR (CLEAR)
[2023-11-08 05:37] VITALS: BP 127/78
--- NOTE | 2023-11-08 15:23 | CT Report ---
PROCEDURE: Soft Tissue Neck W INDICATIONS: Concern Deep space neck infection CONTRAST: 100 ML OMNI 300 TECHNIQUE: After the administration of intravenous contrast, 3.0 mm axial sections acquired from the sella to th e aortic arch. Additional oblique axial 3.0 mm sections acquired through the pharynx. 3 mm thick co gloria reformats were generated. For radiation dose reduction, the following was used: automated exp osure control, adjustment of mA and/or kV according to patient size. COMPARISON: None. FINDINGS: Image quality: Excellent. Lymph nodes: No enlarged lymph nodes seen throughout the neck. Vessels: Visualized vasculature appears patent. Neck spaces: The oropharynx, nasopharynx, and pharynx demonstrate no mucosal lesions. The vocal cor ds, false vocal cords, pyriform sinuses, epiglottis, vallecula, and tongue base all appear normal. E xtramucosal spaces appear unremarkable. Glands: The parotid and submandibular glands appear normal. Surgical clips are present within the r egion of the right thyroid lobe. 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 Miscellaneous: 2.2 cm calcification in the right occipital lobe without mass effect. No priors. Parti ally visualized areas of nodular opacity are present in the superior aspect of the left lower lobe. S uperficial soft tissues appear normal. Bones: No suspicious bony lesions. Visualized sinuses and mastoids appear unremarkable. IMPRESSION: No evidence of airway obstruction or abscess. Calcified mass within the right occipital lobe suspected to be related to hemangioma. No prior studie s are available for comparison. Nodular opacities within the left lower lobe suspicious for infection/inflammation. Please consider a typical etiologies such as fungal or mycobacterial. The above findings are concordant with preliminary report. CLINICAL RECOMMENDATION STATEMENTS: In patients <35 years with an ITN detected on CT, MRI, or extrathyroidal ultrasound, the Committee re commends further evaluation with dedicated thyroid ultrasound if the nodule is "e1 cm and has no susp icious imaging features, and if the patient has normal life expectancy. In patients "e35 years with an ITN detected on CT, MRI, or extrathyroidal ultrasound, the Committee r ecommends further evaluation with dedicated thyroid ultrasound if the nodule is "e1.5 cm and has no s uspicious imaging features, and if the patient has normal life expectancy. (ACR, 2014) Reviewed by: Antonietta Castillo MD on 11/08/2023 3:22 PM PDT Approved by: Antonietta Castillo MD on 11/08/2023 3:22 PM PDT Station ID: [id number]
== END 2023-11-08 05:34 | disposition home or self-care (01) ==
LOC: ED 02:13
DX: J02.9 Acute pharyngitis, unspecified (principal); J18.9 Pneumonia, unspecified organism; A41.9 Sepsis, unspecified organism; I10 Essential (primary) hypertension; E78.00 Pure hypercholesterolemia, unspecified; E03.9 Hypothyroidism, unspecified; Z79.899 Other long term (current) drug therapy
CPT/HCPCS: 36415; 70491; 80053; 81003; 82803; 83605; 83690; 85025; 85610; 87040; 87070; 87430; 87633; 93005; 94640; 96365; 96375; 99284; J0131; Q9967; 81001; 87086